=== PATIENT | female | born 1945 | race Caucasian/White ===

== ENCOUNTER 2017-08-12 10:32 | Inpatient (IN) | payer MEDICARE ==
--- NOTE | 2017-08-09 15:49 | Diagnostic Imaging Report ---
PROCEDURE: X-RAY CHEST, TWO VIEWS COMPARISON: Patients [facility], DX, CHEST XRAY LINE PLACEMENT, 03/16/2012, 16:33. INDICATIONS: PREOPERATIVE CHEST XRAY FOR MESINTERIC MASS FINDINGS: LUNGS: Mild hyperinflation. No mass or infiltrate. Pulmonary veins are mildly prominent but stable. PLEURA: No effusions or pneumothorax. HEART \T\ MEDIASTINUM: MediPort catheter terminated in the SVC. The heart is top normal in size. Aortic arch is ectatic with scattered mural calcifications. BONES \T\ SOFT TISSUES: Diffuse demineralization. No focal osseous lesions. CONCLUSION: Mild pulmonary hyperinflation suggestive of small airways disease. No acute cardiopulmonary process. Dictated by: Brian Mora M.D. on 08/09/2017 at 15:49 Electronically approved by: Brian Mora M.D. on 08/09/2017 at 15:49
[2017-08-11 15:39] LABS: BASOPHILS % 0.4 % (0.0-1.0); EOSINOPHILS # (AUTO) 0.1 (0.0-0.4); EOSINOPHILS % 2.9 % (0.0-6.0); HEMATOCRIT 41.6 % (34.2-44.1); HEMOGLOBIN 13.5 g/dL (12.0-16.0); LYMPHOCYTES # (AUTO) 0.8 (1.0-3.2); LYMPHOCYTES % 16.5 % (18.0-39.1); MEAN CORPUSCULAR HEMOGLOBIN 30.5 pg (28-32); MEAN CORPUSCULAR HGB CONC 32.5 g/dL (31-35); MEAN CORPUSCULAR VOLUME 94.1 fL (81-99); MONOCYTES # (AUTO) 0.5 (0.2-0.8); MONOCYTES % 9.4 % (4.4-11.3); NEUTROPHILS # (AUTO) 3.4 (2.1-6.9); NEUTROPHILS % 70.6 % (38.7-80.0); RED BLOOD COUNT 4.42 x10e6/uL (3.6-5.1); RED CELL DISTRIBUTION WIDTH 14.2 % (11.7-14.4)
[2017-08-11 15:40] LABS: PLATELET COUNT 94 x10e3/uL (140-360)
[2017-08-11 16:00] LABS: ALBUMIN 3.5 g/dL (3.5-5.0); ANION GAP 14.1 mmol/L (8-16); CALCIUM 9.5 mg/dL (8.4-10.2); CREATININE, SERUM 0.99 mg/dL (0.57-1.11); POTASSIUM 4.1 mmol/L (3.5-5.1)
[~2017-08-12] VITALS: Ht 154.9 cm; Wt 130.6 kg
[2017-08-12] VITALS (50 sets, daily range): BP systolic 70–137; BP diastolic 32–100
[~2017-08-12 10:32] MED LIST: ALLOPURINOL100 MG PO; ATENOLOL50 MG PO; CALCIUM + VITA1 EACH PO; CALTRATE 600 W1 EACH PO; CRANBERRY300 MG PO; DOCUSATE SODIU100 MG PO; GLIMEPIRIDE2 MG PO; LEVOFLOXACIN 250MG/D5W 50ML 50 ML ONE; LEVOFLOXACIN 500MG/D5W 100ML 100 ML IV ONE; LIDOCAINE HCL 1% 2 ML AMP ONE; METRONIDAZOLE 500MG/NS 100ML 100 ML IV ONE; NORCO 10MG-325MG1 EA PO; NORCO 5-325 TA1 EACH PO; PRAVASTATIN SOD40 MG PO; PROTONIX40 M2; SIMETHICONE80 MG PO; Z.0.ALLOPURINOL300 M PO; Z.0.GLIPIZIDE5 MG PO; Z.0.LISINOPRIL20 MG PO; Z.0.PANTOPRAZOLE SO4 PO; Z.1.HYDROCHLOROTH12. PO
--- OUTSIDE RECORDS SUMMARY | 2017-08-12 10:35 | XMS REPORT ---
Author Author [facility] Address Unknown Phone Unavailable Care Team Providers Care Tax Processor Name Role Phone CORIE HERRING Unavailable Unavailable Problems This patient has no known problems. Allergies, Adverse Reactions, Alerts This patient has no known allergies or adverse reactions. Medications This patient has no known medications. Results Test Description Test Time Test Comments Text Results Atomic Results Result Comments CHEST 2 VIEWS [facility] [address] [place] [address] Patient Name: SANDRA JOAQUIN MR #: [id number] : 1945 Age/Sex: 72/F Req #: [id number] Adm Physician: Ordered by: CORIE HERRING MD Report #: [id number] Location: OR Room/Bed: Procedure: [id number] DX/ CHEST 2 VIEWS Exam Date: Exam Time: REPORT STATUS: Signed PROCEDURE: X-RAY CHEST, TWO VIEWS COMPARISON: [facility], DX, CHEST XRAY LINE PLACEMENT, 03/16/2012, 16:33. INDICATIONS: PREOPERATIVE CHEST XRAY FOR MESINTERIC MASS FINDINGS: LUNGS: Mild hyperinflation. No mass or infiltrate. Pulmonary veins are mildly prominent but stable. PLEURA: No effusions or pneumothorax. HEART T MEDIASTINUM: MediPort catheter terminated in the SVC. The heart is top normal in size. Aortic arch is ectatic with scattered mural calcifications. BONES T SOFT TISSUES: Diffuse demineralization. No focal osseous lesions. CONCLUSION: Mild pulmonary hyperinflation suggestive of small airways disease. No acute cardiopulmonary process. Dictated by: Chinedu Mora M.D. on 08/09/2017 at 15:49 Electronically approved by: Chinedu Mora M.D. on 08/09/2017 at 15:49 Dictated By: CHINEDU MORA MD [id number] Transcribed By: NENO on 08/09/17 1549 COPY TO: CORIE HERRING MD
[2017-08-12] MEDS ORDERED: HETASTARCH ONE (11:42)
[2017-08-12] MEDS ORDERED: NACL ONE (11:42)
[2017-08-12] MEDS ORDERED: CALCIUM CHLORIDE 10% SYRINGE 20 ML IV ONE (13:05)
[2017-08-12] MEDS ORDERED: LEVOFLOXACIN 500MG/D5W 100ML 100 ML IV SCH (13:45)
[2017-08-12] MEDS: SODIUM CHLORIDE 0.9% 250ML IRRIG IR SCH ×3 (13:45→21:19)
[2017-08-12] MEDS ORDERED: HYDROMORPHONE 2MG/ML INJ IV PRN ×2 (13:45→15:30)
[2017-08-12] MEDS ORDERED: DEXTROSE 50% SYRINGE 50 ML IV PRN (14:15)
[2017-08-12 14:29] LABS: BASOPHILS % 0.1 % (0.0-1.0); EOSINOPHILS % 0.2 % (0.0-6.0); HEMATOCRIT 30.4 % (34.2-44.1); LYMPHOCYTES # (AUTO) 0.6 (1.0-3.2); LYMPHOCYTES % 3.8 % (18.0-39.1); MEAN CORPUSCULAR HEMOGLOBIN 28.7 pg (28-32); MEAN CORPUSCULAR HGB CONC 32.9 g/dL (31-35); MEAN CORPUSCULAR VOLUME 87.4 fL (81-99); MONOCYTES % 6.3 % (4.4-11.3); NEUTROPHILS # (AUTO) 14.5 (2.1-6.9); NEUTROPHILS % 88.2 % (38.7-80.0); PLATELET COUNT 84 x10e3/uL (140-360); RED BLOOD COUNT 3.48 x10e6/uL (3.6-5.1); RED CELL DISTRIBUTION WIDTH 16.5 % (11.7-14.4)
[2017-08-12 14:42] LABS: ANION GAP 14.1 mmol/L (8-16); BLOOD UREA NITROGEN 9 mg/dL (7-26); BUN/CREATININE RATIO 11 (6-25); CALCIUM 7.4 mg/dL (8.4-10.2); CARBON DIOXIDE 18 mmol/L (22-29); CHLORIDE 110 mmol/L (98-107); CREATININE, SERUM 0.83 mg/dL (0.57-1.11); EST GLOMERULAR FILTRATION RATE > 60 ML/MIN (60-); GLUCOSE 211 mg/dL (74-118); POTASSIUM 5.1 mmol/L (3.5-5.1); SODIUM 137 mmol/L (136-145)
[2017-08-12] MEDS ORDERED: HYDROMORPHONE 20MG/ NS 100ML IV PRN (14:45)
[2017-08-12] MEDS ORDERED: PROPOFOL IV EMULSION 10MG/ML 100 ML IV PRN (14:45)
[2017-08-12] MEDS: SODIUM CHLORIDE 0.9% 1000ML 1,000 ML IV SCH ×2 (14:50→20:16)
--- NOTE | 2017-08-12 14:53 | Diagnostic Imaging Report ---
PROCEDURE: A single AP view of the chest. COMPARISON: Chest 2 views 08/09/2017. INDICATIONS: CENTRAL LINE PLACED FINDINGS: Lines/tubes: Endotracheal catheter is present with the tip projecting over the expected region of the trachea, positioned 2 cm from the kai. Enteric feeding catheter is present with the tip projecting over the expected region of the gastric body. Right subclavian tunneled chest port is present with the tip projecting over the expected region of the superior vena cava. Right internal jugular temporary central venous catheter with tip projecting over the expected region of the superior vena cava. Lungs: No parenchymal mass. Bibasilar atelectasis. No focal consolidation. Pleura: There is no pleural effusion or pneumothorax. Heart and mediastinum: The heart and the mediastinum are unremarkable. Bones: No acute bony abnormality. IMPRESSION: No acute radiographic abnormality. Dictated by: Ferdinand Willis M.D. on 08/12/2017 at 14:53 Electronically approved by: Ferdinand Willis M.D. on 08/12/2017 at 14:53
[2017-08-12 14:55] LABS: ABG HCO3 18 mmol/L (23-28); ABG PCO2 39 mmHg (41-51); ABG PH 7.27 (7.31-7.41); ABG PO2 169 mmHg (80-105)
[2017-08-12] MEDS ORDERED: FENTANYL CITRATE/PF 100MCG/2 ML INJ ONE (15:04)
[2017-08-12] MEDS ORDERED: HYDROMORPHONE 100 ML IV PRN (15:30)
[2017-08-12] MEDS ORDERED: SODIUM CHLORIDE 0.9% 250ML 250 ML ONE ×2 (15:40→18:28)
--- NOTE | 2017-08-12 15:50 | Operative Report ---
DATE OF PROCEDURE: August 12, 2017 PREOPERATIVE DIAGNOSIS: Retroperitoneal tumor, metastatic carcinoma of colon. POSTOPERATIVE DIAGNOSIS: Retroperitoneal tumor, metastatic carcinoma of colon with omental mass. OPERATION PERFORMED 1. Exploratory laparotomy. 2. Resection of retroperitoneal tumor. 3. Repair of superior mesenteric vein. 4. Excision of omental mass. X RAY NURSE: None. ANESTHESIA: General. INDICATIONS AND FINDINGS: The patient is a 72-year-old female who had previous colon resection for carcinoma of the colon. She developed a recurrent mass in the base of the mesentery extending into the retroperitoneum. Biopsy revealed metastatic adenocarcinoma of the colon. At surgery, there was a large mass that was about 6 cm in diameter at the base of the mesentery extending into the retroperitoneum adjacent to the inferior aspect of the pancreas as well as adherent to the superior mesenteric vein and superior mesenteric artery. There was also a mass in the omentum as the abdomen was entered, and frozen section of this revealed only fibrosis, no tumor. The bowel all appeared viable at the end of the procedure. TECHNIQUE: After adequate general endotracheal anesthesia, with the patient in the supine position, the abdomen was prepped and draped in a sterile fashion with Jose solution. Through a midline incision, the peritoneal cavity was entered. There were adhesions involving the omentum to the abdominal wall. There was a mass in the omentum as the adhesions were freed. This portion of omentum was resected by dividing with the LigaSure device and submitted for frozen section, which revealed only fibrosis. There was a hard mass palpable at the root of the mesentery extending into the retroperitoneum. The omentum was dissected way from the transverse colon and from the area of previous colon resection. The mass was seen within the lesser sac in the retroperitoneum. Peritoneum over the mass was incised. The mass superiorly was abutting the inferior aspect of the pancreas, and the dissection was carried along the inferior aspect of the pancreas, freeing the mass in this area. As the mass was dissected free, it was found the mass was adherent to the superior mesenteric vein. The mass was dissected off the vein, but there was some bleeding from the vein which was initially controlled with vascular clamps. The mass was dissected completely free from the superior mesenteric vein. There were several larger veins adherent to the mass from the mesentery, and these were divided between Hemoclips and also LigaSure device. To the left, the mass also found to be abutting the superior mesenteric artery. The mass was dissected off the superior mesenteric artery. Care was taken to preserve the artery. The mass was completely freed from the superior mesenteric artery. There were other large veins in the area which started bleeding. These were initially clamped as the mass was dissected free. The mass was dissected off the superior mesenteric vein and the remaining portion of the mesentery using a LigaSure device. Vessels as they were encountered were either divided between Hemoclips or ligated with the LigaSure device, and some of them were suture ligated with 2-0 silk and #0 silk. Once the mass was completely free, it was removed. Superior mesenteric vein, which had been clamped, was then repaired. This was done using 3-0 Prolene. The mesenteric veins were suture ligated with 2-0 silk and 3-0 silk and hemostasis achieved. Patient had a large volume blood loss before the bleeding was controlled. The bowel was then examined. The bowel all appeared pink and viable with no areas of ischemia. The retroperitoneum was irrigated with saline and inspected for hemostasis. Small amount of oozing of the retroperitoneum was controlled with Surgicel gauze. Pressure held and hemostasis achieved. It was inspected for hemostasis once again, which was seen to be adequate. It is not clear if any tumor was left behind as the tumor was dissected free from the superior mesenteric vein and artery, and no adequate margin could be obtained particularly from the superior mesenteric artery as it was abutting the artery. No gross tumor was left behind, however. The wound was inspected for hemostasis once again, which was seen to be adequate. The wound was then closed. The midline fascia was closed with a running suture of #1 PDS. Subcutaneous tissue was irrigated with saline. Skin was closed with pawan. Sterile dressing was applied. Patient tolerated the procedure well. Estimated blood loss was 6,000 mL. There were no complications. All counts were correct. Patient was taken to the ICU in stable condition. Job#: [id number] MH cc:MD JEFFREY WILLIAMSON M.D.
[2017-08-12] MEDS: INSULIN LISPRO 100 UNIT/1 ML 3ML VIAL SQ SCH ×2 (16:30→21:49)
[2017-08-12] MEDS: LORAZEPAM INJ 2 MG/ML VIAL IV PRN (16:57)
[2017-08-12] MEDS: NOREPINEPHRINE INJ 4MG/4ML 8 MG in DEXTROSE 5% 250ML 250 ML IV PRN (16:59)
[2017-08-12] MEDS ORDERED: FAMOTIDINE 20 MG/2 ML VIAL IV SCH (17:00)
[2017-08-12] MEDS ORDERED: PHENYLEPHRINE HCL 1% 10 MG/ML VIAL ONE (18:20)
[2017-08-12] MEDS ORDERED: DEXAMETHASONE SOD PHOS INJ 4 MG/ML VIAL ONE (18:20)
[2017-08-12] MEDS ORDERED: DESFLURANE 240 ML BTL INH ONE (18:20)
[2017-08-12] MEDS ORDERED: PROPOFOL IV EMULSION 10 MG/ML 20 ML VIAL ONE (18:20)
[2017-08-12] MEDS ORDERED: ROCURONIUM BROMIDE 10 MG/ML 5ML VIAL ONE (18:20)
[2017-08-12 22:43] LABS: HEMATOCRIT 38.4 % (34.2-44.1); HEMOGLOBIN 13.2 g/dL (12.0-16.0)
[2017-08-12 22:51] LABS: INR 1.61
[2017-08-12 22:52] LABS: PARTIAL THROMBOPLASTIN TIME 32.8 seconds (23.8-35.5)
[2017-08-13] VITALS (108 sets, daily range): BP systolic 59–130; BP diastolic 28–97
--- NOTE | 2017-08-13 00:14 | Consultation ---
DATE OF CONSULTATION: PLEASE VERIFY PATIENT IDENTITY. ADT MATCH NOT AVAILABLE. PULMONARY CRITICAL CARE CONSULTATION I was called by Dr. Oliva to evaluate the patient postoperatively. Patient underwent surgery for retroperitoneal tumor, omental mass, and metastatic carcinoma of the colon. Post resection, she lost large amount of blood. Now, she is intubated and sedated and she is in circulatory shock. She has received multiple transfusions. HPI: Ms. Gonzales is a 72-year-old female who underwent resection of the retroperitoneal tumor. Patient saw Dr. Oliva and was admitted for this procedure. She is currently on a mechanical ventilator, unable to give me any detailed history. Source of history is the patient's chart. She is arousable, following commands and goes back to sleep. REVIEW OF SYSTEMS: Unable to elicit any as patient is on the ventilator and sedation. PAST MEDICAL HISTORY: Hypertension and diabetes. PAST SURGICAL HISTORY: Tubal ligation, throat surgery, laparoscopic cholecystectomy in 2008, and lap-assisted right colon resection 2016. FAMILY HISTORY: Mother , heart problem in father. SOCIAL HISTORY: Former smoker, quit in 2004. Does not drink. ALLERGIES: PENICILLIN, KEFLEX, , GENTAMICIN. PHYSICAL EXAMINATION VITALS: Temperature 97.4, pulse 113, blood pressure is 81/37, respiratory rate of 18, O2 sat 100%. She is on FiO2 of 50%. Vent settings reviewed. SKIN: Warm and dry. HEENT: Head atraumatic. CHEST: Clear to auscultation bilaterally. HEART: S1 and S2 audible. ABDOMEN: She has an incision which is dressed. LABS: White count of 16,000, hemoglobin 10.0, and platelets 84,000. Chemistry is within normal limits. Creatinines is 0.83. Patient is afebrile. ASSESSMENT/PLAN 1. Circulatory shock, hemorrhagic postoperatively. 2. Removal of large retroperitoneal tumor. 3. History of hypertension and diabetes. PLAN: We will check hemoglobin q.8 hourly and transfuse as needed. She has received 7 units of blood so far. She is on IV fluids. IV hydration has been continued. Patient has received multiple boluses, Levophed for circulatory shock. Will hold off on antibiotic for now. Check labs in a.m. Ventilator setting reviewed. We will keep the patient on ventilator for now until the shock is resolved. Chest x-ray film reviewed, no acute infiltrate and no congestion. Endotracheal tube position is appropriate. d/w family at bedside also d/w Dr Oliva CC TIME 45 MIN Job#: [id number] [facility]
[2017-08-13] MEDS ORDERED: SODIUM CHLORIDE 0.9% 500ML 500 ML IV ONE ×2 (01:45→05:45)
[2017-08-13] MEDS: SODIUM CHLORIDE 0.9% 250ML IRRIG IR SCH ×5 (01:45→18:34)
[2017-08-13] MEDS: SODIUM CHLORIDE 0.9% 1000ML 1,000 ML IV SCH (03:18)
[2017-08-13 06:04] LABS: HEMATOCRIT 37.4 % (34.2-44.1); HEMOGLOBIN 12.6 g/dL (12.0-16.0); MEAN CORPUSCULAR HEMOGLOBIN 29.3 pg (28-32); MEAN CORPUSCULAR HGB CONC 33.7 g/dL (31-35); PLATELET COUNT 146 x10e3/uL (140-360); RED CELL DISTRIBUTION WIDTH 17.4 % (11.7-14.4)
[2017-08-13 06:32] LABS: ALBUMIN 1.8 g/dL (3.5-5.0); ALBUMIN/GLOBULIN RATIO 1.3 (0.8-2.0); ANION GAP 11.6 mmol/L (8-16); POTASSIUM 5.6 mmol/L (3.5-5.1)
[2017-08-13 06:37] LABS: CALCIUM 6.8 mg/dL (8.4-10.2); CREATININE, SERUM 1.64 mg/dL (0.57-1.11)
[2017-08-13] MEDS ORDERED: CALCIUM GLUCONATE 10% INJ 4.65 MEQ in SODIUM CHLORIDE 0.9% 50ML 100 ML IV ONE (07:30)
[2017-08-13] MEDS: INSULIN LISPRO 100 UNIT/1 ML 3ML VIAL SQ SCH ×3 (07:30→18:37)
[2017-08-13 08:30] LABS: BAND NEUTROPHILS % (MANUAL) 10 %; LYMPHOCYTES % (MANUAL) 4 % (19-48); MONOCYTES % (MANUAL) 6 % (3.4-9.0); NEUTROPHILS % (MANUAL) 80 % (40-74)
[2017-08-13 08:31] LABS: ANISOCYTOSIS SLIGHT; PLATELET ESTIMATE SLIGHTLY DECREASED; PLATELET MORPHOLOGY COMMENT NORMAL; RBC MORPHOLOGY COMMENT NORMAL
[2017-08-13] MEDS: LEVOFLOXACIN 500MG/D5W 100ML 100 ML IV SCH (09:30)
[2017-08-13] MEDS: PANTOPRAZOLE 40 MG 10ML VIAL IV SCH (09:35)
[2017-08-13] MEDS ORDERED: HETASTARCH 6%/NACL INJ 500 ML ONE (10:19)
[2017-08-13] MEDS ORDERED: HETASTARCH 6%/NACL INJ 500 ML IV ONE (10:30)
[2017-08-13] MEDS: NOREPINEPHRINE INJ 4MG/4ML 8 MG in DEXTROSE 5% 250ML 250 ML IV PRN (11:20)
[2017-08-13] MEDS: VASOPRESSIN 100 UNIT in DEXTROSE 5% 100ML 95 ML IV SCH (12:00)
[2017-08-13 12:19] LABS: HEMATOCRIT 32.3 % (34.2-44.1); HEMOGLOBIN 11.1 g/dL (12.0-16.0)
[2017-08-13 12:37] LABS: ANION GAP 8.4 mmol/L (8-16); CREATININE, SERUM 2.15 mg/dL (0.57-1.11); POTASSIUM 5.4 mmol/L (3.5-5.1)
[2017-08-13 12:40] LABS: CALCIUM 6.9 mg/dL (8.4-10.2)
[2017-08-13] MEDS ORDERED: FUROSEMIDE INJ 10 MG/ML 4 ML VIAL ONE (13:14)
[2017-08-13] MEDS ORDERED: FUROSEMIDE INJ 10 MG/ML 4 ML VIAL IV ONE (13:20)
[2017-08-13] MEDS ORDERED: DEXTROSE 50% SYRINGE 50 ML IV STA (13:40)
[2017-08-13] MEDS ORDERED: SODIUM CHLORIDE 0.45% 1,000 ML IV ONE (13:45)
[2017-08-13] MEDS ORDERED: INSULIN REGULAR, HUMAN 100 UNIT/1 ML 3ML VIAL IV ONE (13:45)
[2017-08-13] MEDS ORDERED: LIDOCAINE HCL 1% LOCAL INJ 20 ML VIAL ONE (15:00)
--- NOTE | 2017-08-13 15:26 | Consultation ---
DATE OF CONSULTATION: August 13, 2017 CARDIOLOGY CONSULTATION REASON FOR CONSULTATION: Low blood pressure. REQUESTING PHYSICIAN: Dr. Oliva HISTORY OF PRESENT ILLNESS: This is a pleasant, 72-year-old, morbidly obese female that is status post retroperitoneal tumor removal. Postoperatively, she went into circulatory shock. She received multiple blood transfusions. Still intubated and transferred to ICU for higher level of care. Her blood pressure was still low, and cardiology was consulted. She is already on 2 pressors, Levophed and dopamine drip. She is wide awake on the vent on Dilaudid drip to help for sedation and pain. PAST MEDICAL HISTORY: Colon cancer, diabetes, hypertension, and CKD. PAST SURGICAL HISTORY: Tubal ligation, throat surgery, cholecystectomy, colon resection, status post large retroperitoneal tumor removal. FAMILY HISTORY: Noncontributory. SOCIAL HISTORY: She is an ex-smoker. MEDICATIONS: See med list. ALLERGIES: SHE HAS MULTIPLE ALLERGIES, SEE CHART. REVIEW OF SYSTEMS: Unable to obtain. She is intubated and sedated with Dilaudid. PHYSICAL EXAMINATION VITAL SIGNS: Temperature 97.6, heart rate 107, blood pressure now 120/50, respirations 16, oxygen saturation 98% on mechanical ventilation. GENERAL: She is morbidly obese, awake and alert but not following any commands. HEENT: Mucous membranes are moist. NECK: Supple. LUNGS: Bilaterally with decreased breath sounds. CARDIOVASCULAR: S1 and S2 present. ABDOMEN: Soft. NEUROLOGIC: She is sedated. Not able to move all extremities or answer any questions. EXTREMITIES: Bilateral lower extremities with no edema. LABS: Sodium 136, potassium 5.4, chloride 114, CO2 19, BUN 19, creatinine 2.15, glucose 148. White blood cells 32.4, hemoglobin 11.1, hematocrit 32.3, platelets 146. PT 18.0, PTT 32.8, INR 1.61. IMPRESSION 1. Hemorrhagic shock. 2. Hypotension. 3. Diabetes. 4. Status post retroperitoneal tumor removal. 5. Respiratory failure. 6. Renal insufficiency. ASSESSMENT AND PLAN: We will go ahead and get an echocardiogram to assess the LV and the valve function. We will continue vasopressors and wean as tolerated. Sedation per pulmonology. She is pending dialysis catheter placement for possible dialysis. Further cardiac workup pending clinical course. Thank you for this consultation. Dictated by Pearl Segal NP Job#: [id number] MH
--- NOTE | 2017-08-13 15:29 | Consultation ---
DATE OF CONSULTATION: August 13, 2017 NEPHROLOGY CONSULTATION REQUESTING PHYSICIAN: Noble. REASON FOR CONSULTATION: Acute kidney injury. Thank you for allowing us to participate in Ms. Gonzales's care. HISTORY OF PRESENT ILLNESS: This is 72-year-old female who underwent resection of retroperitoneal tumor along with repair of the mesentery vein. She has been in shock. Urine output has essentially become zero. She is somewhat tachycardic on both dopamine and Levophed 20 mcg per minute. On a mechanical ventilator at this time. She did lose some blood, got transfusion. PAST HISTORY 1. Colon cancer, metastatic adenocarcinoma. 1. History of creatinine on admission of 0.8. 2. Hypertension. 3. Type 2 diabetes. 4. Prior kidney injury per family. 5. Colon resection 2016 on the right side. FAMILY HISTORY: Unable to obtain. SOCIAL HISTORY: Per records, prior history of smoking. ALLERGIES ON RECORDS: PENICILLIN, CEPHALEXIN, GENTAMICIN. MEDICATIONS: Please see list. REVIEW OF SYSTEMS: Unable to obtain as she is intubated. PHYSICAL EXAMINATION GENERAL: Lying in ICU bed. She is intubated. VITAL SIGNS: Pulse is 89, blood pressure is 96/46, O2 sat is 98% on ventilator. HEENT: Orally intubated. Occasionally opens eyes. NECK: Unable to see JVD. She has a right internal jugular central line. CHEST: Occasional upper airway sounds. CARDIAC: Normal heart tones. Earlier tachycardia seems improved. EXTREMITIES: Trace edema. ABDOMEN: With sluggish bowel sounds. NEUROLOGIC: Mostly sedate. GENITOURINARY: Paul catheter in place. CHEST X-RAY: Clear earlier. LABS: pH is decreased at 7.27, pCO2 of 39, pO2 of 169. Hemoglobin is going from 13.5 to 10, now back up to 11.1. INR is 1.61. Serum potassium is 5.4, serum CO2 19. Calcium low at 6.9. Albumin is only 1.8. Sodium is 136. Creatinine is 2.1 from 0.83. BUN of 19. ASSESSMENT 1. Acute tubular necrosis. 2. Oliguria/anuria. 3. Metabolic acidosis. 4. Hyperkalemia. PLAN: At this point, insulin 10 units IV x1, 2 amps of dextrose, 50% solution x1. Repeat potassium check. Change IV fluids to half NS with 75 mEq per liter of sodium bicarbonate, run at 150 an hour. Get renal ultrasound. Get urine studies if she does make any urine, including urine eosinophils. Agree with serial hemoglobin checks as there still may be some blood loss to be considered. Additionally, she is at high risk for needing dialytic support. Will request Interventional Radiology place a dialysis catheter for us with the help of ultrasound. Will follow along. Complex decision-making discussed with family. Prognosis remains guarded given the multiple system failures. Will follow along. Sincerely, Job#: [id number] EV
--- NOTE | 2017-08-13 15:52 | Diagnostic Imaging Report ---
PROCEDURE:US RETROPERITONEAL ( KIDNEY ). COMPARISON:None. INDICATIONS:LOW URINE OUTPUT TECHNIQUE: Gonzalez-scale and color sonographic images of the bilateral kidneys and bladder where obtained in transverse and longitudinal planes. FINDINGS: RIGHT KIDNEY: 9.8 x 4 x 4 cm, cortex 1.4 cm Cysts: None Solid masses: None Stones: None Hydronephrosis: None Echogenicity: Increased LEFT KIDNEY: 8.4 x 4.5 cm, cortex 1.8 cm. Transverse measurement was unable to be completed as patient declined to continue with the ultrasound exam. A single longitudinal image of the left kidney was only able to be obtained. Cysts: Not evaluated Solid masses: Not evaluated Stones: Not evaluated Hydronephrosis: Not evaluated Echogenicity: Not evaluated Bladder: Collapsed with Paul in place. Incidental note of ascites in the right upper quadrant and limited view of the left upper quadrant. CONCLUSION: 1. Limited evaluation of the left kidney. Patient declined to complete the ultrasound exam secondary to pain. 2. Mildly increased right renal echogenicity may reflect medical renal disease. 3. Ascites. Dictated by: Nish Bardales M.D. on 08/13/2017 at 15:52 Electronically approved by: Nish Bardales M.D. on 08/13/2017 at 15:52
--- NOTE | 2017-08-13 16:09 | Diagnostic Imaging Report ---
PROCEDURE: A single AP view of the chest. COMPARISON: Chest radiograph 08/12/2017 INDICATIONS: CENTRAL LINE PLACEMENT FINDINGS: Lines/tubes: * Right IJ catheter tip projects over the upper SVC. * Right chest wall port catheter tip projects over the upper SVC. * ET tube tip projects approximately 7.1 cm above the kai near the thoracic inlet. Consider advancing. * NG/OG tube tip and side hole project over the gastric body. Lungs: The lungs are not well inflated. There is no evidence of pneumonia or pulmonary edema. Pleura: Possible trace bilateral pleural effusions. There is no pneumothorax. Heart and mediastinum: The heart and the mediastinum are unremarkable. Bones: Unchanged Upper abdomen: Cholecystectomy clips. IMPRESSION: Lines and tubes as above. Possible trace bilateral pleural effusions. Otherwise, no acute cardiopulmonary disease. Dictated by: Nish Bardales M.D. on 08/13/2017 at 16:08 Electronically approved by: Nish Bardales M.D. on 08/13/2017 at 16:08
[2017-08-13] MEDS ORDERED: PROPOFOL IV EMULSION 10 MG/ML 20 ML VIAL IV ONE (16:15)
[2017-08-13] MEDS ORDERED: SODIUM CHLORIDE 0.45% 1,000 ML IV SCH (16:15)
[2017-08-13] MEDS: SODIUM BICARBONATE 8.4% 75 ML in SODIUM CHLORIDE 0.45% 1,000 ML IV SCH (16:29)
[2017-08-13] MEDS: PROPOFOL IV EMULSION 10MG/ML 100 ML IV SCH (16:30)
[2017-08-13 17:38] LABS: BILIRUBIN,URINE 1+ (NEGATIVE); COLOR,URINE YELLOW (YELLOW); KETONES,URINE NEGATIVE (NEGATIVE); LEUKOCYTE ESTERASE ,URINE TRACE (NEGATIVE); NITRITE,URINE NEGATIVE (NEGATIVE); URINE UROBILINOGEN 1 mg/dL (0.2 - 1)
[2017-08-13 17:40] LABS: CLARITY,URINE SL CLOUDY (CLEAR); PROTEIN,URINE DIPSTICK 1+ (NEGATIVE)
[2017-08-13 18:00] LABS: BACTERIA,URINE MANY /HPF; EPITHELIAL CELLS,URINE FEW /LPF; HYALINE CASTS 0-1 (0-1)
[2017-08-13 18:43] LABS: EOSINOPHIL SMEAR,URINE NONE SEEN (NONE SEEN)
[2017-08-13 19:38] LABS: HEMATOCRIT 30.8 % (34.2-44.1); HEMOGLOBIN 10.4 g/dL (12.0-16.0)
[2017-08-13 20:05] LABS: ANION GAP 9.9 mmol/L (8-16); CREATININE, SERUM 2.65 mg/dL (0.57-1.11); POTASSIUM 4.9 mmol/L (3.5-5.1)
[2017-08-13 20:10] LABS: CALCIUM 6.9 mg/dL (8.4-10.2)
[2017-08-13] MEDS: LORAZEPAM INJ 2 MG/ML VIAL IV PRN (23:55)
[2017-08-14] VITALS (131 sets, daily range): BP systolic 64–138; BP diastolic 31–69
[2017-08-14] MEDS: SODIUM CHLORIDE 0.9% 250ML IRRIG IR SCH ×7 (00:03→22:30)
[2017-08-14] MEDS: INSULIN LISPRO 100 UNIT/1 ML 3ML VIAL SQ SCH ×4 (00:15→18:00)
[2017-08-14] MEDS: SODIUM BICARBONATE 8.4% 75 ML in SODIUM CHLORIDE 0.45% 1,000 ML IV SCH ×4 (00:16→21:17)
[2017-08-14] MEDS: NOREPINEPHRINE INJ 4MG/4ML 8 MG in DEXTROSE 5% 250ML 250 ML IV PRN ×2 (01:32→20:58)
[2017-08-14] MEDS: LORAZEPAM INJ 2 MG/ML VIAL IV PRN ×3 (04:25→21:04)
[2017-08-14 04:47] LABS: HEMATOCRIT 30.5 % (34.2-44.1); HEMOGLOBIN 10.3 g/dL (12.0-16.0); MEAN CORPUSCULAR HEMOGLOBIN 29.8 pg (28-32); MEAN CORPUSCULAR HGB CONC 33.8 g/dL (31-35); MEAN CORPUSCULAR VOLUME 88.2 fL (81-99); PLATELET COUNT 88 x10e3/uL (140-360); RED BLOOD COUNT 3.46 x10e6/uL (3.6-5.1); RED CELL DISTRIBUTION WIDTH 17.7 % (11.7-14.4)
[2017-08-14 05:15] LABS: ALBUMIN 1.4 g/dL (3.5-5.0); ALBUMIN/GLOBULIN RATIO 0.9 (0.8-2.0); ANION GAP 11.8 mmol/L (8-16); CREATININE, SERUM 3.06 mg/dL (0.57-1.11); PHOSPHORUS 4.1 MG/DL (2.3-4.7); POTASSIUM 4.8 mmol/L (3.5-5.1)
[2017-08-14] MEDS: LEVOFLOXACIN 500MG/D5W 100ML 100 ML IV SCH ×2 (05:15→07:30)
[2017-08-14 05:16] LABS: MAGNESIUM 0.9 MG/DL (1.3-2.1)
[2017-08-14] MEDS ORDERED: MAGNESIUM SULFATE 2GM/50ML 50 ML IV ONE (05:30)
[2017-08-14 06:21] LABS: BILIRUBIN,URINE 2+ (NEGATIVE); KETONES,URINE TRACE (NEGATIVE); LEUKOCYTE ESTERASE ,URINE 1+ (NEGATIVE); URINE UROBILINOGEN 4 mg/dL (0.2 - 1)
[2017-08-14 06:22] LABS: CLARITY,URINE HAZY (CLEAR); COLOR,URINE YELLOW (YELLOW); NITRITE,URINE POSITIVE (NEGATIVE); PROTEIN,URINE DIPSTICK 1+ (NEGATIVE)
[2017-08-14 06:24] LABS: BACTERIA,URINE MODERATE /HPF; EPITHELIAL CELLS,URINE FEW /LPF; RBC,URINE 0-5 /HPF (0-5)
[2017-08-14 06:25] LABS: WBC,URINE (MAN) 0-5 /HPF (0-5)
[2017-08-14] MEDS: PANTOPRAZOLE 40 MG 10ML VIAL IV SCH (09:00)
[2017-08-14] MEDS ORDERED: SODIUM CHLORIDE 0.9% 1000ML 2,000 ML IV PRN (10:45)
[2017-08-14] MEDS ORDERED: HEPARIN SOD (PORCINE) 1000 UNIT/ML SDV IV PRN (10:45)
[2017-08-14] MEDS: VASOPRESSIN 100 UNIT in DEXTROSE 5% 100ML 95 ML IV SCH (12:00)
[2017-08-14] MEDS ORDERED: VANCOMYCIN 1GM/NS 250 ML 250 ML IV ONE (12:00)
[2017-08-14] MEDS ORDERED: SODIUM CHLORIDE 0.9% 1000ML 2,000 ML ONE (12:26)
[2017-08-14] MEDS: PROPOFOL IV EMULSION 10MG/ML 100 ML IV SCH (16:15)
--- NOTE | 2017-08-14 18:10 | Diagnostic Imaging Report ---
EXAMINATION: CT scan of the chest without contrast. TECHNIQUE: Spiral CT images of the chest were performed from the lung apices to the level of the adrenal glands. No intravenous contrast was administered due to decreased GFR. Coronal and sagittal reformatted images were obtained. COMPARISON: None. CLINICAL HISTORY:Status post surgery for retroperitoneal tumor and carcinoma of colon, status post circulatory shock DISCUSSION: ABSENCE OF INTRAVENOUS CONTRAST DECREASES SENSITIVITY FOR DETECTION OF FOCAL LESIONS AND VASCULAR PATHOLOGY. LINES/TUBES: Endotracheal tube in place with distal tip approximately 4.0 cm above the kai. Enteric tube in place, with distal tip in the stomach fundus. LUNGS AND AIRWAYS: Mild to moderate compressive atelectasis of bilateral lower lobes. Atelectatic changes in the lingula secondary to prominent epicardial fat pad. Upper lungs and right middle lobe are clear, without opacities or consolidation. The major airways are clear, without other bronchial lesions. PLEURA: Small bilateral pleural effusions. No pneumothorax. HEART AND MEDIASTINUM: Bilateral thyroid lobe enlargement. 1.0 cm calcification in the right thyroid lobe (series 5, image 6) and 7 mm peripherally calcified nodule in the inferior tip of the left thyroid lobe (series 5, image 15).. Heart size is normal. No pericardial effusion. Atherosclerotic calcification of the coronary arteries, thoracic aorta and likely mitral annulus. LYMPH NODES: No mediastinal, hilar or axillary adenopathy. ABDOMEN: Please see CT of the abdomen and pelvis performed same day. BONES AND SOFT TISSUES: Generalized osteopenia. No aggressive lytic lesions. IMPRESSION: 1. Small bilateral pleural effusions with mild to moderate compressive atelectasis of bilateral lower lobes. 2. Atelectatic changes in the lingula. 3. Bilateral thyroid lobe enlargement, with bilateral calcified nodules, as described Signed by: Dr. Jos Rivera M.D. on 08/14/2017 6:07 PM
--- NOTE | 2017-08-14 18:16 | Diagnostic Imaging Report ---
EXAMINATION: CT of the abdomen and pelvis without contrast. TECHNIQUE: Spiral CT images of the abdomen and pelvis were performed from the lung bases to the lesser trochanters. No intravenous contrast was given due to decreased GFR. Coronal and sagittal reformatted images were obtained. COMPARISON: None. CLINICAL HISTORY:Status post surgery for retroperitoneal tumor and carcinoma of colon, status post hepatic artery shock, history of mesenteric mass, rule out bleeding DISCUSSION: ABSENCE OF INTRAVENOUS CONTRAST DECREASES SENSITIVITY FOR DETECTION OF FOCAL LESIONS AND VASCULAR PATHOLOGY. ABDOMEN/PELVIS: LOWER THORAX: Please see CT chest performed same date. HEPATOBILIARY: No focal hepatic lesions. No intra or extrahepatic biliary ductal dilation. GALLBLADDER: Cholecystectomy clips. SPLEEN: Mild splenomegaly, measuring 13.2 cm in AP diameter. PANCREAS: No focal masses or ductal dilatation. Moderate pancreatic atrophy. ADRENALS: No adrenal nodules. KIDNEYS/URETERS: No hydronephrosis, stones, or contour abnormalities. PELVIC ORGANS/BLADDER: Bladder is decompressed with Paul catheter in place. A small amount of air is noted in the antidependent portion of the bladder. Uterus is unremarkable. No adnexal masses. PERITONEUM/RETROPERITONEUM: Small amount of simple abdominal/perihepatic and mesenteric ascites. Small amount of simple free fluid in the pelvis. No hyperdense fluid is noted in the abdomen or pelvis to suggest hemoperitoneum. No well-defined fluid collections. LYMPH NODES: No intra-abdominal,retroperitoneal, pelvic or inguinal lymphadenopathy. VESSELS: Atherosclerotic calcification of the abdominal aorta and iliac vessels. GI TRACT: No bowel dilation or evidence of obstruction. Postoperative changes in the transverse colon, likely post ascending colectomy. BONES AND SOFT TISSUES: No aggressive lytic lesions. Generalized osteopenia. Moderate soft tissue edema. Bilateral calcified injection granulomas in the gluteal regions. IMPRESSION: 1. Exam limited by the lack of intravenous contrast. 2. No hyperdense fluid is noted in the abdomen or pelvis to suggest hemoperitoneum. No well-defined fluid collections, within the limitations of the exam. 3. Small amount of simple abdominal/perihepatic/mesenteric ascites and simple free fluid in the pelvis. 4. Mild splenomegaly. 5. Postoperative changes likely from ascending colectomy. No bowel dilation or evidence of obstruction. Signed by: Dr. Jos Rivera M.D. on 08/14/2017 6:13 PM
[2017-08-15] VITALS (109 sets, daily range): BP systolic 72–164; BP diastolic 38–69
[2017-08-15] MEDS: INSULIN LISPRO 100 UNIT/1 ML 3ML VIAL SQ SCH ×5 (00:38→19:08)
[2017-08-15] MEDS: SODIUM CHLORIDE 0.9% 250ML IRRIG IR SCH ×7 (03:06→22:35)
[2017-08-15] MEDS: NOREPINEPHRINE INJ 4MG/4ML 8 MG in DEXTROSE 5% 250ML 250 ML IV PRN ×2 (03:06→14:00)
[2017-08-15] MEDS: SODIUM BICARBONATE 8.4% 75 ML in SODIUM CHLORIDE 0.45% 1,000 ML IV SCH ×3 (04:05→18:25)
[2017-08-15] MEDS: LEVOFLOXACIN 500MG/D5W 100ML 100 ML IV SCH ×3 (05:15→10:40)
[2017-08-15 05:21] LABS: BASOPHILS % 0.1 % (0.0-1.0); HEMATOCRIT 28.7 % (34.2-44.1); HEMOGLOBIN 9.7 g/dL (12.0-16.0); LYMPHOCYTES # (AUTO) 1.1 (1.0-3.2); LYMPHOCYTES % 5.4 % (18.0-39.1); MEAN CORPUSCULAR HEMOGLOBIN 29.7 pg (28-32); MEAN CORPUSCULAR HGB CONC 33.8 g/dL (31-35); MEAN CORPUSCULAR VOLUME 87.8 fL (81-99); MONOCYTES # (AUTO) 1.4 (0.2-0.8); MONOCYTES % 6.7 % (4.4-11.3); NEUTROPHILS % 86.4 % (38.7-80.0); PLATELET COUNT 70 x10e3/uL (140-360); RED BLOOD COUNT 3.27 x10e6/uL (3.6-5.1); RED CELL DISTRIBUTION WIDTH 17.7 % (11.7-14.4)
[2017-08-15 05:45] LABS: ANION GAP 12.2 mmol/L (8-16); CALCIUM 7.5 mg/dL (8.4-10.2); CREATININE, SERUM 3.19 mg/dL (0.57-1.11); MAGNESIUM 1.2 MG/DL (1.3-2.1); PHOSPHORUS 3.7 MG/DL (2.3-4.7); POTASSIUM 4.2 mmol/L (3.5-5.1)
[2017-08-15] MEDS ORDERED: MAGNESIUM SULF 1GRAM/DEXTROSE 100 ML IV ONE ×2 (06:45→15:30)
[2017-08-15 10:15] LABS: ABG HCO3 26 mmol/L (23-28); ABG PCO2 37 mmHg (41-51); ABG PH 7.46 (7.31-7.41); ABG PO2 80 mmHg (80-105)
[2017-08-15] MEDS: PANTOPRAZOLE 40 MG 10ML VIAL IV SCH (10:40)
[2017-08-15] MEDS: VASOPRESSIN 100 UNIT in DEXTROSE 5% 100ML 95 ML IV SCH (12:00)
[2017-08-15] MEDS: PROPOFOL IV EMULSION 10MG/ML 100 ML IV SCH (16:15)
[2017-08-15] MEDS ORDERED: HYDROMORPHONE 20MG/ NS 100ML IV PRN (20:45)
[2017-08-16] VITALS (83 sets, daily range): BP systolic 81–145; BP diastolic 35–79
[2017-08-16 04:35] LABS: BASOPHILS % 0.2 % (0.0-1.0); EOSINOPHILS % 0.1 % (0.0-6.0); HEMATOCRIT 27.1 % (34.2-44.1); HEMOGLOBIN 9.2 g/dL (12.0-16.0); LYMPHOCYTES # (AUTO) 1.1 (1.0-3.2); LYMPHOCYTES % 6.7 % (18.0-39.1); MEAN CORPUSCULAR HGB CONC 33.9 g/dL (31-35); MEAN CORPUSCULAR VOLUME 88.3 fL (81-99); MONOCYTES # (AUTO) 1.3 (0.2-0.8); MONOCYTES % 7.7 % (4.4-11.3); NEUTROPHILS # (AUTO) 13.8 (2.1-6.9); NEUTROPHILS % 84.2 % (38.7-80.0); PLATELET COUNT 58 x10e3/uL (140-360); RED BLOOD COUNT 3.07 x10e6/uL (3.6-5.1); RED CELL DISTRIBUTION WIDTH 17.7 % (11.7-14.4)
[2017-08-16 04:48] LABS: ANION GAP 12.3 mmol/L (8-16); CALCIUM 7.7 mg/dL (8.4-10.2); CREATININE, SERUM 3.76 mg/dL (0.57-1.11); POTASSIUM 4.3 mmol/L (3.5-5.1)
[2017-08-16 04:54] LABS: BAND NEUTROPHILS % (MANUAL) 2 %; LYMPHOCYTES % (MANUAL) 7 % (19-48); MONOCYTES % (MANUAL) 6 % (3.4-9.0); NEUTROPHILS % (MANUAL) 85 % (40-74)
[2017-08-16 04:55] LABS: ANISOCYTOSIS SLIGHT; PLATELET ESTIMATE MARKEDLY DECREASED; PLATELET MORPHOLOGY COMMENT FEW LARGE; RBC MORPHOLOGY COMMENT NORMAL
[2017-08-16 05:03] LABS: MAGNESIUM 1.7 MG/DL (1.3-2.1)
[2017-08-16] MEDS: SODIUM CHLORIDE 0.9% 250ML IRRIG IR SCH ×5 (05:24→18:18)
[2017-08-16] MEDS: INSULIN LISPRO 100 UNIT/1 ML 3ML VIAL SQ SCH ×4 (06:00→18:00)
--- NOTE | 2017-08-16 06:46 | Diagnostic Imaging Report ---
EXAM: XR CHEST 1 VIEW DATE: 08/16/2017 7:00 AM INDICATION: Intubated COMPARISON: 08/13/2017 FINDINGS: Limitations: Underpenetration, low lung volumes, and body habitus limited evaluation. Lines and Tubes: ET tube tip above the kai and NG tube coursing past the inferior field of view stable. There is a right IJ central venous catheter with tip overlying SVC. Heart and Mediastinum: Prominent. Lungs and Pleura: Poorly evaluated. Mild edema and basilar atelectasis suspected. Trace effusions difficult to exclude. Bones and Soft Tissues: No acute findings. IMPRESSION: 1. Limited exam with no significant interval change. Signed by: Dr. Ray Tafoya MD on 08/16/2017 6:43 AM
--- NOTE | 2017-08-16 07:47 | Diagnostic Imaging Report ---
PROCEDURE:ULTRASOUND GUIDANCE FOR VASCULAR ACCESS COMPARISON:None. INDICATIONS:Not provided. FINDINGS:Left internal jugular vein is noted to be patent. Ultrasound guidance was utilized for access for temporary hemodialysis line placement. CONCLUSION:Patent left internal jugular vein. Successful ultrasound guidance for temporary hemodialysis line placement. Dictated by: Tapan Durand M.D. on 08/16/2017 at 7:47 Electronically approved by: Tapan Durand M.D. on 08/16/2017 at 7:47
--- NOTE | 2017-08-16 07:47 | Diagnostic Imaging Report ---
PROCEDURE:NON-TUNNELLED CVC CATH PLACMNT COMPARISON:None. INDICATIONS: Need for hemodialysis access COMPLICATIONS: No immediate MEDICATIONS: Lidocaine 1% for local anesthesia BLOOD LOSS: Minimal Blood products administered: None Sedation/anesthesia: None Condition at completion of procedure: Critical Disposition: Remain in ICU PROCEDURE: Informed consent was obtained from the next of kin and documented in the medical record after discussion of risks and benefits. Due to presence of a right subclavian central venous port catheter and right internal jugular central venous catheter, the decision was made to proceed with temporary hemodialysis catheter placement via the left internal jugular vein. Preliminary sonographic evaluation confirmed patency of the left internal jugular vein, evidenced by compressibility. The left cervical region was prepped and draped in the standard sterile fashion. 1% lidocaine was infiltrated into the skin and subcutaneous tissues for local anesthesia. Then under continuous sonographic guidance, a 21 gauge micropuncture needle was used to access the left internal jugular vein. A permanent sonographic image was stored in PACS. A 0.018 inch wire was advanced centrally and the needle was exchanged for a 5 Amharic micropuncture sheath. The wire was then upsized to a 0.035 inch J-wire which was then advanced to a depth of approximately 30 cm with continuous cardiac rhythm monitoring. The micropuncture sheath was removed and the tract was dilated. Then, a 12 Amharic, 20 cm dual-lumen temporary hemodialysis catheter was advanced over the wire to a depth of 19 cm. The wire was removed. Each lumen was tested and showed brisk bidirectional flow. Each lumen was then flushed with sterile saline. The catheter was secured to skin with monofilament nylon suture and a sterile dressing was applied. The patient tolerated the procedure well without immediate complications. CONCLUSION: Successful placement of a 12 Amharic, 20 cm dual-lumen temporary hemodialysis catheter via a left internal jugular approach under sonographic guidance. A post procedure chest radiograph was requested upon completion of the procedure to confirm line positioning prior to use. Dictated by: Tapan Durand M.D. on 08/16/2017 at 7:47 Electronically approved by: Tapan Durand M.D. on 08/16/2017 at 7:47
[2017-08-16] MEDS: LEVOFLOXACIN 500MG/D5W 100ML 100 ML IV SCH (07:48)
[2017-08-16] MEDS ORDERED: HYDROMORPHONE 1MG/1ML INJ IV PRN (09:15)
[2017-08-16] MEDS ORDERED: ALBUMIN HUMAN 50 ML IV PRN (10:00)
[2017-08-16] MEDS ORDERED: MEROPENEM 500MG 500 MG in SODIUM CHLORIDE 0.9% 50ML 50 ML IV SCH (11:30)
[2017-08-16 11:57] LABS: AMYLASE 183 U/L (25-125); LIPASE 28 U/L (8-78)
[2017-08-16] MEDS: VASOPRESSIN 100 UNIT in DEXTROSE 5% 100ML 95 ML IV SCH (12:00)
--- NOTE | 2017-08-16 12:29 | Consultation ---
DATE OF CONSULTATION: REASON FOR CONSULTATION: Sepsis. HISTORY OF PRESENT ILLNESS: This patient, who is a 72-year-old white female, was admitted on August [address] Oliva. She had retroperitoneal tumor, metastatic cancer, carcinoma of the colon. She underwent exploratory laparotomy, resection of retroperitoneal tumor, repair of superior mesenteric vein, excision of omental masses. The patient has been in the intensive care unit since then. The patient has underlying history of hypertension, diabetes, obesity. She is currently in the hospital since admission in the intensive care unit. Infectious disease was consulted today to manage her antibiotic and to make recommendation. The patient underwent resection of her retroperitoneal tumor. She was admitted and intubated. She has been on the vent since then. There is no family at the bedside. PAST SURGICAL HISTORY: Obesity, hypertension, diabetes, recently diagnosed tumor. PAST SURGICAL HISTORY: Tubal ligation, throat surgery, laparoscopic cholecystectomy, and then lap-assisted right colon resection in 2016. FAMILY HISTORY: There is no smoking, drug abuse or alcohol abuse. She used to smoke, quit in 2004. ALLERGIES: PENICILLIN, CEPHALEXIN, GENTAMICIN. MEDICATIONS: She has been on Levaquin, lorazepam, dopamine, furosemide. REVIEW OF SYSTEMS: Could not be obtained. LABORATORY DATA: Reviewed. Blood cultures: No growth at 48 hours. Urine culture is negative. Her white count today is 16.3. It was 27.28. Hemoglobin 10 and platelets of 88. Sodium 136, potassium 4.3, creatinine 3.76. The patient is currently on hemodialysis. PHYSICAL EXAMINATION GENERAL: She is intubated and sedated. VITALS: Stable currently, but she is running a fever of 100.6. She has been running a fever since July 19 or . HEENT: Normocephalic. Oral intubation. CHEST: A few crackles bilaterally. COR: S1 and S2. ABDOMEN: Soft. Bowel sounds are present. No tenderness. EXTREMITIES: No edema. SKIN: No rash. The patient has ET intubation. She has NG tube and right IJ catheter. IMPRESSION 1. Fever in a patient status post abdominal surgery and respiratory failure and pneumonia. Concern is abdominal infection. However, also could be other. I am concerned about her leukocytosis. I would recommend to put her on meropenem 500 daily. Discontinue Levaquin. Add Flagyl. Will give her a gram of vancomycin. Recheck her blood cultures. Recheck CBC. Also obtain amylase and lipase. 2. Acute tubular necrosis of chronic kidney disease. 3. Diabetes. 4. Obesity. Since admission, she has been having a high white count, but there was trending up. We will see how she will do with the broad coverage antibiotic. Will get the cultures and uric acid, amylase and lipase. We will see how she will do clinically and then reassess. Job#: [id number]
[2017-08-16] MEDS: FUROSEMIDE INJ 400 MG in MANNITOL 20% 500ML 500 ML IV SCH (13:14)
[2017-08-16] MEDS: SODIUM BICARBONATE 8.4% 75 ML in SODIUM CHLORIDE 0.45% 1,000 ML IV SCH (13:15)
[2017-08-16] MEDS: PANTOPRAZOLE 40 MG 10ML VIAL IV SCH (13:16)
[2017-08-16] MEDS: NOREPINEPHRINE INJ 4MG/4ML 8 MG in DEXTROSE 5% 250ML 250 ML IV PRN (13:16)
[2017-08-16] MEDS: METRONIDAZOLE 500MG/NS 100ML 100 ML IV SCH ×2 (13:16→16:38)
[2017-08-16 15:59] LABS: ABG HCO3 27 mmol/L (23-28); ABG PCO2 37 mmHg (41-51); ABG PH 7.46 (7.31-7.41); ABG PO2 94 mmHg (80-105)
[2017-08-16] MEDS: PROPOFOL IV EMULSION 10MG/ML 100 ML IV SCH (16:15)
[2017-08-16] MEDS: MEROPENEM 500 MG VIAL IV SCH (16:37)
[2017-08-16] MEDS ORDERED: HYDROMORPHONE 100 ML IV PRN (20:00)
[2017-08-17] VITALS (92 sets, daily range): BP systolic 69–141; BP diastolic 35–99
[2017-08-17] MEDS: METRONIDAZOLE 500MG/NS 100ML 100 ML IV SCH ×3 (01:24→16:11)
[2017-08-17] MEDS: SODIUM CHLORIDE 0.9% 250ML IRRIG IR SCH ×6 (02:30→21:09)
[2017-08-17] MEDS: INSULIN LISPRO 100 UNIT/1 ML 3ML VIAL SQ SCH ×4 (06:00→18:00)
[2017-08-17 06:10] LABS: BASOPHILS # (AUTO) 0.1 (0.0-0.1); BASOPHILS % 0.4 % (0.0-1.0); EOSINOPHILS % 0.3 % (0.0-6.0); HEMATOCRIT 24.8 % (34.2-44.1); HEMOGLOBIN 8.3 g/dL (12.0-16.0); LYMPHOCYTES # (AUTO) 0.8 (1.0-3.2); LYMPHOCYTES % 5.7 % (18.0-39.1); MEAN CORPUSCULAR HEMOGLOBIN 30.1 pg (28-32); MEAN CORPUSCULAR HGB CONC 33.5 g/dL (31-35); MEAN CORPUSCULAR VOLUME 89.9 fL (81-99); MONOCYTES # (AUTO) 1.5 (0.2-0.8); MONOCYTES % 10.4 % (4.4-11.3); NEUTROPHILS # (AUTO) 11.2 (2.1-6.9); NEUTROPHILS % 78.6 % (38.7-80.0); RED BLOOD COUNT 2.76 x10e6/uL (3.6-5.1); RED CELL DISTRIBUTION WIDTH 17.9 % (11.7-14.4)
[2017-08-17 06:16] LABS: PLATELET COUNT 41 x10e3/uL (140-360)
--- NOTE | 2017-08-17 06:30 | Diagnostic Imaging Report ---
ADDENDUM #1 Note there is a right port and bilateral IJ central venous catheters; their courses overlap in the region of the SVC/cavoatrial junction. Signed by: Dr Earnestine Otero MD on 08/18/2017 5:50 AM ORIGINAL REPORT CHEST SINGLE (PORTABLE), 08/17/2017 7:00 AM Technique: CHEST SINGLE (PORTABLE) Comparison: 08/16/2017 Clinical history: Respiratory failure Findings: See Impression Impression: Limited by body habitus and portable technique 1. Lines/Tubes: Stable visualized ET tube, subdiaphragmatic NG tube. 2. Stable enlarged cardiomediastinal silhouette. 3. Lungs and pleural spaces again poorly assessed. Mild bibasilar opacity which may be due to soft tissue attenuation, atelectasis/edema, infection or aspiration. Signed by: Dr Earnestine Otero MD on 08/17/2017 6:27 AM
[2017-08-17 06:31] LABS: ALBUMIN/GLOBULIN RATIO 1.1 (0.8-2.0); CALCIUM 8.1 mg/dL (8.4-10.2); CREATININE, SERUM 3.01 mg/dL (0.57-1.11)
[2017-08-17 07:17] LABS: MAGNESIUM 1.5 MG/DL (1.3-2.1); PHOSPHORUS 3.5 MG/DL (2.3-4.7)
[2017-08-17 07:23] LABS: BAND NEUTROPHILS % (MANUAL) 3 %; LYMPHOCYTES % (MANUAL) 3 % (19-48); MONOCYTES % (MANUAL) 15 % (3.4-9.0); NEUTROPHILS % (MANUAL) 79 % (40-74)
[2017-08-17 07:24] LABS: HYPOCHROMASIA MODERATE; RBC MORPHOLOGY COMMENT NORMAL
[2017-08-17 07:25] LABS: ANISOCYTOSIS SLIGHT; PLATELET ESTIMATE MODERATELY DECREASED
[2017-08-17 07:26] LABS: PLATELET MORPHOLOGY COMMENT FEW LARGE
[2017-08-17] MEDS ORDERED: MAGNESIUM SULFATE 2GM/50ML 50 ML IV ONE ×2 (10:00→15:53)
[2017-08-17] MEDS ORDERED: MIDAZOLAM HCL 2 MG/2 ML VIAL IV STA (10:02)
[2017-08-17] MEDS ORDERED: HYDROMORPHONE 1MG/1ML INJ IV STA (10:10)
[2017-08-17] MEDS: PANTOPRAZOLE 40 MG 10ML VIAL IV SCH (10:17)
[2017-08-17 10:25] LABS: ABG HCO3 28 mmol/L (23-28); ABG PCO2 31 mmHg (41-51); ABG PH 7.56 (7.31-7.41); ABG PO2 100 mmHg (80-105)
[2017-08-17] MEDS ORDERED: SODIUM CHLORIDE 0.9% 1000ML 2,000 ML IV PRN (13:45)
[2017-08-17] MEDS ORDERED: ALBUMIN HUMAN 12.5GM / 50ML IV PRN (13:45)
[2017-08-17] MEDS ORDERED: HEPARIN SOD (PORCINE) 1000 UNIT/ML SDV IV PRN (13:45)
[2017-08-17] MEDS: FUROSEMIDE INJ 400 MG in MANNITOL 20% 500ML 500 ML IV SCH (15:46)
[2017-08-17] MEDS: MEROPENEM 500 MG VIAL IV SCH (16:09)
[2017-08-17] MEDS ORDERED: SODIUM CHLORIDE 0.9% 500ML 500 ML ONE (16:16)
[2017-08-17] MEDS ORDERED: ACETAMINOPHEN 325 MG/10 ML UDC NG PRN (16:45)
[2017-08-17] MEDS ORDERED: ACETAMINOPHEN 1000 MG/100 ML IV PRN (21:15)
[2017-08-17] MEDS: LORAZEPAM INJ 2 MG/ML VIAL IV PRN (23:05)
[2017-08-18] VITALS (111 sets, daily range): BP systolic 70–133; BP diastolic 37–92
[2017-08-18] MEDS: METRONIDAZOLE 500MG/NS 100ML 100 ML IV SCH ×3 (02:00→17:27)
[2017-08-18] MEDS: SODIUM CHLORIDE 0.9% 250ML IRRIG IR SCH ×4 (02:39→12:57)
[2017-08-18 05:39] LABS: BASOPHILS % 0.3 % (0.0-1.0); EOSINOPHILS % 0.3 % (0.0-6.0); HEMATOCRIT 24.9 % (34.2-44.1); HEMOGLOBIN 8.1 g/dL (12.0-16.0); LYMPHOCYTES # (AUTO) 0.9 (1.0-3.2); LYMPHOCYTES % 6.8 % (18.0-39.1); MEAN CORPUSCULAR HEMOGLOBIN 29.5 pg (28-32); MEAN CORPUSCULAR HGB CONC 32.5 g/dL (31-35); MEAN CORPUSCULAR VOLUME 90.5 fL (81-99); MONOCYTES # (AUTO) 1.4 (0.2-0.8); MONOCYTES % 10.1 % (4.4-11.3); NEUTROPHILS # (AUTO) 10.6 (2.1-6.9); NEUTROPHILS % 76.8 % (38.7-80.0); PLATELET COUNT 50 x10e3/uL (140-360); RED BLOOD COUNT 2.75 x10e6/uL (3.6-5.1)
--- NOTE | 2017-08-18 05:51 | Diagnostic Imaging Report ---
CHEST SINGLE (PORTABLE), 08/18/2017 7:00 AM Technique: CHEST SINGLE (PORTABLE) Comparison: Previous day Clinical history: Congestive heart failure Findings: See Impression Impression: Limited by body habitus, portable technique and motion artifact 1. Lines/Tubes: ET tube is no longer visualized. NG tube extends subdiaphragmatically. Right port, and bilateral central venous catheters are poorly visualized, grossly unchanged. 2. Stable enlarged cardiomediastinal silhouette. 3. Lungs and pleural spaces again poorly assessed. Mild bibasilar opacity which may be due to atelectasis, infection or aspiration. Signed by: Dr Earnestine Otero MD on 08/18/2017 5:47 AM
[2017-08-18 05:57] LABS: ALBUMIN 1.9 g/dL (3.5-5.0); ANION GAP 14.9 mmol/L (8-16); CALCIUM 8.3 mg/dL (8.4-10.2); CREATININE, SERUM 2.99 mg/dL (0.57-1.11); POTASSIUM 3.9 mmol/L (3.5-5.1)
[2017-08-18] MEDS: INSULIN LISPRO 100 UNIT/1 ML 3ML VIAL SQ SCH ×4 (06:00→18:00)
[2017-08-18 06:06] LABS: MAGNESIUM 2.1 MG/DL (1.3-2.1); PHOSPHORUS 4.1 MG/DL (2.3-4.7)
[2017-08-18 07:33] LABS: LYMPHOCYTES % (MANUAL) 3 % (19-48); METAMYELOCYTES % (MANUAL) 3 % (0-0); MONOCYTES % (MANUAL) 8 % (3.4-9.0); NEUTROPHILS % (MANUAL) 86 % (40-74)
[2017-08-18 07:34] LABS: PLATELET ESTIMATE MODERATELY DECREASED; PLATELET MORPHOLOGY COMMENT FEW GIANT; RBC MORPHOLOGY COMMENT NORMAL
[2017-08-18 07:35] LABS: ANISOCYTOSIS SLIGHT; HYPOCHROMASIA SLIGHT
[2017-08-18] MEDS: PANTOPRAZOLE 40 MG 10ML VIAL IV SCH (09:14)
[2017-08-18] MEDS: FUROSEMIDE INJ 400 MG in MANNITOL 20% 500ML 500 ML IV SCH (09:21)
[2017-08-18] MEDS ORDERED: MANNITOL 25% 12.5GM/50ML 100 ML ONE (09:27)
[2017-08-18] MEDS ORDERED: SODIUM CHLORIDE 0.9% 1000ML 2,000 ML IV PRN (09:45)
[2017-08-18] MEDS ORDERED: ALBUMIN HUMAN 12.5GM / 50ML IV PRN (09:45)
[2017-08-18] MEDS ORDERED: SODIUM CHLORIDE 0.9% 250ML 500 ML IV PRN (09:45)
[2017-08-18] MEDS ORDERED: MANNITOL 25% 12.5GM/50 ML VIAL IV PRN (09:45)
[2017-08-18] MEDS ORDERED: HEPARIN SOD (PORCINE) 1000 UNIT/ML SDV IV PRN (09:45)
[2017-08-18] MEDS: LORAZEPAM INJ 2 MG/ML VIAL IV PRN ×2 (10:17→21:30)
[2017-08-18] MEDS ORDERED: ACETAMINOPHEN 1000 MG/100 ML IV PRN (11:15)
[2017-08-18] MEDS: NOREPINEPHRINE 8 MG/D5W 250 ML 250 ML IV PRN (11:45)
[2017-08-18] MEDS: MEROPENEM 500 MG VIAL IV SCH (12:01)
[2017-08-18] MEDS: VANCOMYCIN 1GM/NS 250 ML 250 ML IV SCH (12:59)
[2017-08-18] MEDS: CENTRAL TPN FORMULA 1 BAG IV SCH (20:00)
[2017-08-18] MEDS ORDERED: CLOPIDOGREL75 MG PO (20:00)
[2017-08-18] MEDS ORDERED: ASPIRIN325 MG PO (20:00)
[2017-08-18] MEDS ORDERED: COLACE100 MG PO (20:01)
[2017-08-18] MEDS ORDERED: LISINOPRIL10 MG PO (20:02)
[2017-08-18] MEDS ORDERED: MONTELUKAST SOD10 MG PO (20:07)
[2017-08-18] MEDS ORDERED: MIRTAZAPINE15 MG PO (20:07)
[2017-08-18] MEDS ORDERED: namzaric PO (20:15)
[2017-08-18] MEDS ORDERED: SERTRALINE HCL50 MG PO (20:16)
[2017-08-18] MEDS ORDERED: RANEXA500 MG PO (20:16)
[2017-08-19] VITALS (93 sets, daily range): BP systolic 70–123; BP diastolic 32–78
[2017-08-19] MEDS: INSULIN LISPRO 100 UNIT/1 ML 3ML VIAL SQ SCH ×4 (01:11→18:43)
[2017-08-19] MEDS: METRONIDAZOLE 500MG/NS 100ML 100 ML IV SCH ×3 (01:18→15:52)
[2017-08-19 04:47] LABS: BASOPHILS # (AUTO) 0.1 (0.0-0.1); BASOPHILS % 0.4 % (0.0-1.0); EOSINOPHILS % 0.1 % (0.0-6.0); HEMATOCRIT 25.7 % (34.2-44.1); LYMPHOCYTES # (AUTO) 0.8 (1.0-3.2); LYMPHOCYTES % 5.1 % (18.0-39.1); MEAN CORPUSCULAR HEMOGLOBIN 29.6 pg (28-32); MEAN CORPUSCULAR HGB CONC 31.1 g/dL (31-35); MEAN CORPUSCULAR VOLUME 95.2 fL (81-99); MONOCYTES # (AUTO) 1.2 (0.2-0.8); MONOCYTES % 7.5 % (4.4-11.3); NEUTROPHILS # (AUTO) 13.3 (2.1-6.9); NEUTROPHILS % 82.3 % (38.7-80.0); PLATELET COUNT 50 x10e3/uL (140-360); RED CELL DISTRIBUTION WIDTH 18.8 % (11.7-14.4)
[2017-08-19 05:07] LABS: MAGNESIUM 2.3 MG/DL (1.3-2.1); PHOSPHORUS 4.3 MG/DL (2.3-4.7)
[2017-08-19 05:09] LABS: ALBUMIN 2.1 g/dL (3.5-5.0); ALBUMIN/GLOBULIN RATIO 1.2 (0.8-2.0); ANION GAP 13.8 mmol/L (8-16); CALCIUM 8.3 mg/dL (8.4-10.2); CREATININE, SERUM 3.36 mg/dL (0.57-1.11); POTASSIUM 3.8 mmol/L (3.5-5.1)
[2017-08-19 05:33] LABS: ANISOCYTOSIS SLIGHT; BAND NEUTROPHILS % (MANUAL) 9 %; LYMPHOCYTES % (MANUAL) 4 % (19-48); MONOCYTES % (MANUAL) 4 % (3.4-9.0); MYELOCYTES % (MANUAL) 1 % (0-0); NEUTROPHILS % (MANUAL) 82 % (40-74); NUCLEATED RED BLOOD CELLS 1; PLATELET ESTIMATE MARKEDLY DECREASED; PLATELET MORPHOLOGY COMMENT NORMAL; RBC MORPHOLOGY COMMENT NORMAL
[2017-08-19 05:35] LABS: POLYCHROMASIA FEW
[2017-08-19] MEDS: PANTOPRAZOLE 40 MG 10ML VIAL IV SCH (07:54)
[2017-08-19] MEDS: BALSAM PERU/CASTOR OIL 60 GM OINT...G. TP SCH ×2 (07:54→17:34)
[2017-08-19] MEDS ORDERED: ALBUMIN 5% 250ML IV ONE (10:30)
[2017-08-19] MEDS ORDERED: ALBUMIN HUMAN 100 ML IV SCH (11:00)
[2017-08-19] MEDS ORDERED: ALBUMIN 5% 500 ML IV SCH (12:00)
[2017-08-19] MEDS: MEROPENEM 500 MG VIAL IV SCH (12:31)
[2017-08-19] MEDS: MICAFUNGIN SODIUM 100 ML IV SCH (14:37)
[2017-08-19] MEDS: ACETAMINOPHEN 1000 MG/100 ML IV PRN ×2 (15:30→19:51)
[2017-08-19] MEDS: CENTRAL TPN FORMULA 1 BAG IV SCH (21:00)
[2017-08-19] MEDS: LORAZEPAM INJ 2 MG/ML VIAL IV PRN (22:30)
--- NOTE | 2017-08-19 23:48 | Consultation ---
DATE OF CONSULTATION: August 19, 2017 at 4:30 p.m. NEUROLOGICAL CONSULTATION REASON FOR CONSULTATION: Altered mental status. This is a 72-year-old female who underwent exploratory laparotomy for removal of large retroperitoneal mass and resection of colon. She suffered respiratory distress. She was intubated. She developed hemorrhagic sepsis associated with hypotension. The patient later was extubated and now she is very obtunded, not following commands, the reason for which neurologic evaluation has been requested. She has history, as mentioned, of colon cancer, diabetes mellitus, hypertension, and now she has developed also acute tubular necrosis. PAST SURGICAL HISTORY: As mentioned above, besides also she had cholecystectomy. She had tubal ligation and colon resection in 2016. MEDICATIONS: List of medications has been reviewed in detail. She is on multiple medications and multiple antibiotics and all the medications have been reviewed in detail. ALLERGIES: GENTAMICIN, CEPHALEXIN AND PENICILLIN. She has not been sedated, but she has been given Ativan 1 mg q.6 h. p.r.n. just for agitation. REVIEW OF SYSTEMS: Unable to perform because of the mental status. PHYSICAL EXAMINATION VITAL SIGNS: At the time of this examination, blood pressure 86/89. NEUROLOGIC EXAM: The patient is rather obtunded and on stimulation and calling her name, she is able to open her eyes. She seems to have some eye tracking. Pupils are equal and reactive. Doll's movement is present. There is a little bit of icterus in both eyes. The patient is able to follow simple commands like squeezing my hand, and asking to move her feet she is able to move her feet, and asking to see my hand and see how many fingers, she is able to say 2 fingers. So, she is having some good cognitive response. Stimulation shows withdrawal of both arms and both legs. No evidence of focal weakness. Plantar stimulation is down bilaterally. NECK: Supple. No evidence of any meningeal signs. LABORATORY DATA: CBC shows a white count of 16,150, hemoglobin 8, hematocrit 25.7, platelets low at 50. Chemistry: Sodium 141, potassium 3.8, BUN 45, creatinine 3.36. Estimated GFR is quite low, 14. Glucose 260. Liver enzymes slightly elevated. Cultures of urine and blood have been negative. The patient is on multiple antibiotics. Chest x-ray with marked basilar opacity, which may be due to soft tissue attenuation, atelectasis, infection or aspiration. IMPRESSION 1. Metabolic encephalopathy, multifactorial. 2. Renal insufficiency. 3. Removal of large peritoneal tumor, adenocarcinoma. 4. History of hypertension and diabetes. 5. Questionable sepsis. I do not think we are dealing with cerebrovascular event at the present time. It seems to be more metabolic. The patient is able to open her eyes and follow very simple commands, which is a good sign. Will monitor closely. Family members not present for discussion about this patient. Job#: [id number]
[2017-08-20] VITALS (95 sets, daily range): BP systolic 66–134; BP diastolic 34–80
[2017-08-20] MEDS: METRONIDAZOLE 500MG/NS 100ML 100 ML IV SCH ×3 (01:12→17:00)
[2017-08-20] MEDS: NOREPINEPHRINE 8 MG/D5W 250 ML 250 ML IV PRN (03:38)
[2017-08-20 05:18] LABS: BASOPHILS % 0.2 % (0.0-1.0); EOSINOPHILS # (AUTO) 0.1 (0.0-0.4); EOSINOPHILS % 0.3 % (0.0-6.0); HEMATOCRIT 24.6 % (34.2-44.1); LYMPHOCYTES % 4.9 % (18.0-39.1); MEAN CORPUSCULAR HEMOGLOBIN 30.2 pg (28-32); MEAN CORPUSCULAR HGB CONC 31.7 g/dL (31-35); MEAN CORPUSCULAR VOLUME 95.3 fL (81-99); MONOCYTES # (AUTO) 1.3 (0.2-0.8); MONOCYTES % 6.9 % (4.4-11.3); NEUTROPHILS % 83.2 % (38.7-80.0); PLATELET COUNT 54 x10e3/uL (140-360); RED BLOOD COUNT 2.58 x10e6/uL (3.6-5.1); RED CELL DISTRIBUTION WIDTH 19.5 % (11.7-14.4)
[2017-08-20 05:23] LABS: HEMOGLOBIN 7.8 g/dL (12.0-16.0)
[2017-08-20] MEDS: INSULIN LISPRO 100 UNIT/1 ML 3ML VIAL SQ SCH ×4 (05:26→18:31)
[2017-08-20 05:32] LABS: ANION GAP 12.8 mmol/L (8-16); CALCIUM 8.1 mg/dL (8.4-10.2); CREATININE, SERUM 4.38 mg/dL (0.57-1.11); MAGNESIUM 2.6 MG/DL (1.3-2.1); POTASSIUM 3.8 mmol/L (3.5-5.1)
--- NOTE | 2017-08-20 05:46 | Diagnostic Imaging Report ---
CHEST SINGLE (PORTABLE), 08/20/2017 7:00 AM Technique: CHEST SINGLE (PORTABLE) Comparison: Previous day Clinical history: Shortness of breath Findings: See Impression Impression: Limited by body habitus, portable technique and motion artifact 1. Lines/Tubes: Removal of NG tube. Right port, and bilateral central venous catheters are poorly visualized, grossly unchanged. 2. Stable enlarged cardiomediastinal silhouette. 3. Mild bibasilar opacity which may be due to atelectasis, infection or aspiration with small effusions. Signed by: Dr Earnestine Otero MD on 08/20/2017 5:43 AM
[2017-08-20 07:10] LABS: BAND NEUTROPHILS % (MANUAL) 4 %; LYMPHOCYTES % (MANUAL) 5 % (19-48); MONOCYTES % (MANUAL) 7 % (3.4-9.0); NEUTROPHILS % (MANUAL) 84 % (40-74); NUCLEATED RED BLOOD CELLS 1
[2017-08-20 07:13] LABS: ANISOCYTOSIS MODERATE; PLATELET ESTIMATE MODERATELY DECREASED; PLATELET MORPHOLOGY COMMENT NORMAL; RBC MORPHOLOGY COMMENT ABNORMAL
[2017-08-20] MEDS: BALSAM PERU/CASTOR OIL 60 GM OINT...G. TP SCH ×2 (08:24→17:10)
[2017-08-20] MEDS ORDERED: MYCAFUNGIN SODIUM 100 MG/100 ML BAG IV SCH (09:00)
[2017-08-20] MEDS ORDERED: SODIUM CHLORIDE 0.9% 250ML 250 ML IV ONE (10:00)
[2017-08-20] MEDS: LORAZEPAM INJ 2 MG/ML VIAL IV PRN (12:22)
[2017-08-20] MEDS: MEROPENEM 500 MG VIAL IV SCH (14:10)
[2017-08-20] MEDS: PANTOPRAZOLE 40 MG 10ML VIAL IV SCH (14:10)
--- NOTE | 2017-08-20 14:29 | Diagnostic Imaging Report ---
PROCEDURE: A single AP view of the chest. COMPARISON: Portable chest 08/20/2017 at 0500 hrs.. INDICATIONS: CENTRAL LINE PLACEMENT FINDINGS: Lines/tubes: Interval exchange of the left internal jugular temporary double lumen hemodialysis catheter for a triple lumen temporary central venous catheter with the tip projecting over the expected region of the superior vena cava. Interval placement of a right internal jugular temporary central venous hemodialysis catheter with the tip projecting over the expected region of the right atrium. No interval change in proper position of the right internal jugular temporary triple lumen central venous catheter. Right subclavian tunneled chest port with tip projecting over the expected region of the superior vena cava. Lungs: Bibasilar atelectasis. No parenchymal mass. Pleura: Small bilateral pleural effusions. No pneumothorax. Heart and mediastinum: The heart and the mediastinum are unremarkable. Bones: No acute bony abnormality. IMPRESSION: Lines and support catheters as above. Small bilateral pleural effusions. Dictated by: Ferdinand Willis M.D. on 08/20/2017 at 14:29 Electronically approved by: Ferdinand Willis M.D. on 08/20/2017 at 14:29
[2017-08-20] MEDS ORDERED: SODIUM CHLORIDE 0.9% 1000ML 1,000 ML ONE (15:15)
--- NOTE | 2017-08-20 15:46 | Diagnostic Imaging Report ---
PROCEDURE:US ABDOMEN LIMITED COMPARISON:None. INDICATIONS:ABDOMINAL WOUND DRAINAGE, R/O ABSCESS FINDINGS: Grayscale longitudinal and transverse images of the subcutaneous soft tissues in the region of the skin pawan was performed. No abscesses or drainable fluid collections identified. CONCLUSION: No drainable fluid collections. Dictated by: Nish Bardales M.D. on 08/20/2017 at 15:46 Electronically approved by: Nish Bardales M.D. on 08/20/2017 at 15:46
[2017-08-20] MEDS ORDERED: ACETAMINOPHEN 325 MG SUPP PR PRN (16:30)
[2017-08-20 16:47] LABS: BASOPHILS # (AUTO) 0.1 (0.0-0.1); BASOPHILS % 0.3 % (0.0-1.0); EOSINOPHILS # (AUTO) 0.1 (0.0-0.4); EOSINOPHILS % 0.4 % (0.0-6.0); HEMATOCRIT 25.4 % (34.2-44.1); HEMOGLOBIN 8.1 g/dL (12.0-16.0); LYMPHOCYTES % 4.4 % (18.0-39.1); MEAN CORPUSCULAR HEMOGLOBIN 30.6 pg (28-32); MEAN CORPUSCULAR HGB CONC 31.9 g/dL (31-35); MEAN CORPUSCULAR VOLUME 95.8 fL (81-99); MONOCYTES % 4.3 % (4.4-11.3); NEUTROPHILS % 86.8 % (38.7-80.0); RED BLOOD COUNT 2.65 x10e6/uL (3.6-5.1); RED CELL DISTRIBUTION WIDTH 19.9 % (11.7-14.4)
[2017-08-20 16:50] LABS: PLATELET COUNT 57 x10e3/uL (140-360)
[2017-08-20] MEDS: SODIUM CHLORIDE 0.9% 500ML 500 ML IV SCH ×3 (17:01→17:32)
[2017-08-20 17:07] LABS: ALBUMIN 1.2 g/dL (3.5-5.0); ALBUMIN/GLOBULIN RATIO 1.2 (0.8-2.0); ANION GAP 8.1 mmol/L (8-16); CREATININE, SERUM 2.04 mg/dL (0.57-1.11)
[2017-08-20 17:11] LABS: CALCIUM 4.3 mg/dL (8.4-10.2); POTASSIUM 2.1 mmol/L (3.5-5.1)
[2017-08-20 17:39] LABS: ALBUMIN 2.6 g/dL (3.5-5.0); ANION GAP 15.8 mmol/L (8-16); CALCIUM 8.6 mg/dL (8.4-10.2); CREATININE, SERUM 3.48 mg/dL (0.57-1.11); POTASSIUM 3.8 mmol/L (3.5-5.1)
[2017-08-20] MEDS: MICAFUNGIN SODIUM 100 ML IV SCH (19:53)
[2017-08-20] MEDS: CENTRAL TPN FORMULA 1 BAG IV SCH (20:24)
[2017-08-20] MEDS: ACETAMINOPHEN 1000 MG/100 ML IV PRN (22:15)
[2017-08-21] VITALS (91 sets, daily range): BP systolic 86–213; BP diastolic 42–202
[2017-08-21] MEDS: INSULIN LISPRO 100 UNIT/1 ML 3ML VIAL SQ SCH ×4 (00:26→18:40)
[2017-08-21] MEDS: METRONIDAZOLE 500MG/NS 100ML 100 ML IV SCH ×3 (01:00→18:38)
[2017-08-21] MEDS: LORAZEPAM INJ 2 MG/ML VIAL IV PRN (02:20)
[2017-08-21 06:56] LABS: ANION GAP 12.9 mmol/L (8-16); CALCIUM 8.3 mg/dL (8.4-10.2); CREATININE, SERUM 3.15 mg/dL (0.57-1.11); MAGNESIUM 2.2 MG/DL (1.3-2.1); PHOSPHORUS 4.2 MG/DL (2.3-4.7); POTASSIUM 3.9 mmol/L (3.5-5.1)
[2017-08-21 07:02] LABS: HEMATOCRIT 26.4 % (34.2-44.1); HEMOGLOBIN 8.4 g/dL (12.0-16.0); MEAN CORPUSCULAR HEMOGLOBIN 29.8 pg (28-32); MEAN CORPUSCULAR HGB CONC 31.8 g/dL (31-35); MEAN CORPUSCULAR VOLUME 93.6 fL (81-99); RED BLOOD COUNT 2.82 x10e6/uL (3.6-5.1)
[2017-08-21 07:03] LABS: RED CELL DISTRIBUTION WIDTH 20.7 % (11.7-14.4)
[2017-08-21 07:04] LABS: BASOPHILS # (AUTO) 0.1 (0.0-0.1); BASOPHILS % 0.3 % (0.0-1.0); EOSINOPHILS # (AUTO) 0.1 (0.0-0.4); EOSINOPHILS % 0.5 % (0.0-6.0); LYMPHOCYTES # (AUTO) 1.1 (1.0-3.2); LYMPHOCYTES % 5.7 % (18.0-39.1); MONOCYTES % 5.1 % (4.4-11.3); NEUTROPHILS # (AUTO) 16.4 (2.1-6.9); NEUTROPHILS % 84.5 % (38.7-80.0); PLATELET COUNT 39 x10e3/uL (140-360)
[2017-08-21] MEDS: VANCOMYCIN 1GM/NS 250 ML 250 ML IV SCH (07:43)
[2017-08-21 08:46] LABS: ALBUMIN 2.3 g/dL (3.5-5.0); ALBUMIN/GLOBULIN RATIO 1.2 (0.8-2.0)
--- NOTE | 2017-08-21 09:30 | Diagnostic Imaging Report ---
EXAM: CT Abdomen and Pelvis WITHOUT contrast INDICATION: \S\post op drainage \[id number] \S\0900 COMPARISON: CT abdomen and pelvis 08/14/2017 TECHNIQUE: Abdomen and pelvis were scanned utilizing a multidetector helical scanner from the lung base to the pubic symphysis without administration of IV contrast. Absence of intravenous contrast decreases sensitivity for detection of focal lesions and vascular pathology. Coronal and sagittal reformations were obtained. Routine protocol was performed. IV CONTRAST: None ORAL CONTRAST: Water COMPLICATIONS: None RADIATION DOSE: Total DLP: 889.99 mGy*cm Estimated effective dose: (DLP x 0.015 x size factor) mSv CTDIvol has been reviewed. It is below the limits set by the Radiation Protocol Committee (RPC). FINDINGS: LINES and TUBES: Paul catheter in place. LOWER THORAX: Stable small bilateral pleural effusions with adjacent atelectasis. Coronary artery calcifications. Partially visualized central catheter tip at lower cavoatrial junction HEPATOBILIARY: Left hepatic lobe appears enlarged relative to the right hepatic lobe. No focal hepatic lesions. No biliary ductal dilation. GALLBLADDER: Cholecystectomy. SPLEEN: Spleen is enlarged measuring 14.7 cm in length. PANCREAS: No focal masses or ductal dilatation. ADRENALS: No adrenal nodules KIDNEYS/URETERS: No hydronephrosis. No cystic or solid mass lesions. No stones. GI TRACT: No bowel dilation or evidence of obstruction. Postoperative changes in the transverse colon, likely post ascending colectomy. Descending and sigmoid colonic diverticula without evidence of diverticulitis. PELVIC ORGANS/BLADDER: Paul catheter in place. Bladder is decompressed. LYMPH NODES: No lymphadenopathy. VESSELS: There is moderate atherosclerotic disease in the aorta and major arterial branches. PERITONEUM / RETROPERITONEUM: No free air. Increased now moderate volume fluid attenuating ascites. Postoperative stranding related to resection of the mesenteric mass. BONES AND SOFT TISSUES: No aggressive lytic lesions. Generalized osteopenia. Moderate soft tissue edema. Bilateral calcified injection granulomas in the gluteal regions. Midline laparotomy scar. IMPRESSION: 1. Exam limited by lack of IV contrast. 2. Increased now moderate volume simple appearing ascites. No well-defined fluid collections within the limitations of the exam. 3. Left hepatic lobe enlargement may reflect early cirrhosis. Splenomegaly could be related to portal hypertension. 4. Stable small bilateral pleural effusions. Signed by: DR. Nish Bardales MD on 08/21/2017 9:27 AM
[2017-08-21] MEDS: BALSAM PERU/CASTOR OIL 60 GM OINT...G. TP SCH ×2 (09:35→17:30)
[2017-08-21] MEDS: PANTOPRAZOLE 40 MG 10ML VIAL IV SCH (09:45)
[2017-08-21 11:01] LABS: BAND NEUTROPHILS % (MANUAL) 5 %; LYMPHOCYTES % (MANUAL) 4 % (19-48); METAMYELOCYTES % (MANUAL) 1 % (0-0); MONOCYTES % (MANUAL) 3 % (3.4-9.0); MYELOCYTES % (MANUAL) 1 % (0-0); NEUTROPHILS % (MANUAL) 86 % (40-74); PLATELET ESTIMATE MODERATELY DECREASED; PLATELET MORPHOLOGY COMMENT NORMAL; RBC MORPHOLOGY COMMENT NORMAL
[2017-08-21] MEDS: MEROPENEM 500 MG VIAL IV SCH (11:30)
[2017-08-21] MEDS ORDERED: INSULIN LISPRO 100 UNIT/1 ML 3ML VIAL SQ ONE (12:30)
[2017-08-21] MEDS: MICAFUNGIN SODIUM 100 ML IV SCH (14:42)
[2017-08-21] MEDS: ACETAMINOPHEN 1000 MG/100 ML IV PRN (16:30)
[2017-08-21] MEDS: ONDANSETRON HCL INJ 2 MG/ML VIAL IV PRN (16:30)
--- NOTE | 2017-08-21 18:32 | Progress Note ---
DATE: August 21, 2017 Ms. Gonzales remains in ICU, lethargic. OBJECTIVE GENERAL: Lethargic. VITAL SIGNS: Stable. HEENT: Not icteric. NECK: Supple. CHEST: Clear. ABDOMEN: Morbidly obese. The wound looked good. There is no redness or erythema. However, there is drainage from the lower part of the wound. It is becoming more like liquid stool type of material at the present time. This is a patient who is status post exploratory laparotomy, status post resection of retroperitoneal tumor. Repair of superior mesenteric vein with omental mass. History of carcinoma of the colon, status post resection in 2016, and now there is a new metastatic adenocarcinoma of the colon. A morbidly obese patient and now with drainage from the wound. I am concerned about early fistula. The CAT scan does not reveal any abscess at the present time, but there was no IV contrast. The patient is morbidly obese. Her laboratory data was reviewed. Her white count is 19.42, hemoglobin 8.4, sodium 137, potassium 3.9, creatinine 3.15. IMPRESSION: 1. I think the patient is very ill. Prognosis is very guarded. Her problem, cancer reoccurrence, now status post surgery, I am concerned about fistula or dehiscence. 2. Chronic kidney disease. 3. Diabetes. 4. Morbidly obese patient. 5. Altered mental status, encephalopathy, metabolic. RECOMMENDATIONS: She is currently on micafungin, insulin, meropenem, vancomycin. She is well covered on antibiotics, but the issue I think is the overall prognosis. I will discuss with the attending, surgery, hematology/oncology. Prognosis is poor. Job#: [id number]
[2017-08-21] MEDS: CENTRAL TPN FORMULA 1 BAG IV SCH (20:19)
[2017-08-21] MEDS: HYDROMORPHONE 1MG/1ML INJ IV PRN (20:59)
[2017-08-22] VITALS (91 sets, daily range): BP systolic 80–134; BP diastolic 40–102
[2017-08-22] MEDS: INSULIN LISPRO 100 UNIT/1 ML 3ML VIAL SQ SCH ×4 (00:34→18:17)
[2017-08-22] MEDS: METRONIDAZOLE 500MG/NS 100ML 100 ML IV SCH ×3 (00:34→17:14)
[2017-08-22 05:47] LABS: BASOPHILS % 0.2 % (0.0-1.0); EOSINOPHILS % 0.1 % (0.0-6.0); HEMATOCRIT 26.8 % (34.2-44.1); HEMOGLOBIN 8.2 g/dL (12.0-16.0); LYMPHOCYTES # (AUTO) 0.7 (1.0-3.2); MEAN CORPUSCULAR HEMOGLOBIN 28.9 pg (28-32); MEAN CORPUSCULAR HGB CONC 30.6 g/dL (31-35); MEAN CORPUSCULAR VOLUME 94.4 fL (81-99); MONOCYTES # (AUTO) 0.7 (0.2-0.8); MONOCYTES % 4.5 % (4.4-11.3); NEUTROPHILS # (AUTO) 14.1 (2.1-6.9); NEUTROPHILS % 87.4 % (38.7-80.0); PLATELET COUNT 71 x10e3/uL (140-360); RED BLOOD COUNT 2.84 x10e6/uL (3.6-5.1); RED CELL DISTRIBUTION WIDTH 21.6 % (11.7-14.4)
[2017-08-22 06:03] LABS: ANION GAP 13.5 mmol/L (8-16); CALCIUM 8.4 mg/dL (8.4-10.2); CREATININE, SERUM 3.07 mg/dL (0.57-1.11); MAGNESIUM 2.5 MG/DL (1.3-2.1); PHOSPHORUS 5.4 MG/DL (2.3-4.7); POTASSIUM 4.5 mmol/L (3.5-5.1)
[2017-08-22] MEDS: PANTOPRAZOLE 40 MG 10ML VIAL IV SCH (08:47)
[2017-08-22] MEDS: HYDROMORPHONE 1MG/1ML INJ IV PRN ×2 (08:57→21:32)
[2017-08-22] MEDS: BALSAM PERU/CASTOR OIL 60 GM OINT...G. TP SCH ×2 (09:00→17:14)
[2017-08-22] MEDS: MEROPENEM 500 MG VIAL IV SCH (11:19)
[2017-08-22] MEDS ORDERED: INSULIN LISPRO 100 UNIT/1 ML 3ML VIAL SQ ONE (12:30)
[2017-08-22 13:58] LABS: BAND NEUTROPHILS % (MANUAL) 10 %; LYMPHOCYTES % (MANUAL) 2 % (19-48); MONOCYTES % (MANUAL) 3 % (3.4-9.0); NEUTROPHILS % (MANUAL) 85 % (40-74)
[2017-08-22 13:59] LABS: PLATELET ESTIMATE ADEQUATE; PLATELET MORPHOLOGY COMMENT NORMAL; RBC MORPHOLOGY COMMENT NORMAL
[2017-08-22] MEDS: MICAFUNGIN SODIUM 100 ML IV SCH (14:30)
[2017-08-22] MEDS ORDERED: INSULIN DETEMIR 100 UNIT/ML PEN SQ SCH (21:00)
[2017-08-22] MEDS: CENTRAL TPN FORMULA 1 BAG IV SCH (21:02)
[2017-08-23] VITALS (104 sets, daily range): BP systolic 72–153; BP diastolic 25–102
[2017-08-23] MEDS: INSULIN LISPRO 100 UNIT/1 ML 3ML VIAL SQ SCH ×5 (00:33→23:13)
--- NOTE | 2017-08-23 00:48 | Progress Note ---
DATE: Ms. Gonzales seems much better today. She is alert, oriented, up in bed. Family at bedside. Discussed with them my concern. The patient continued to have drainage from abdominal wound, now is more like a stool type of material, liquidy. The patient has no complaints. LABORATORY DATA: Reviewed. Her white count is down to 16.1, hemoglobin 8.2, hematocrit 26. Her sodium 137, potassium 4.5, glucose of 487. Her wound culture is still pending. Blood culture is negative. IMPRESSION: 1. I am concerned about fistula which is draining to the outside, stool type. Continue total parenteral nutrition. She is on metronidazole, micafungin, meropenem, and vancomycin. 2. Obesity. 3. Anemia. 4. Chronic kidney disease. Will discuss with Dr. Oliva tomorrow. May be if we can remove stitch to let the wound drain versus other. Patient has history of cancer with recurrence, which is also of concern. She had colon cancer with recurrence of metastasis. Will follow. Job#: [id number]
[2017-08-23] MEDS: METRONIDAZOLE 500MG/NS 100ML 100 ML IV SCH ×2 (01:00→07:42)
[2017-08-23 06:14] LABS: BASOPHILS # (AUTO) 0.1 (0.0-0.1); BASOPHILS % 0.3 % (0.0-1.0); EOSINOPHILS % 0.2 % (0.0-6.0); HEMOGLOBIN 8.7 g/dL (12.0-16.0); LYMPHOCYTES # (AUTO) 0.6 (1.0-3.2); MEAN CORPUSCULAR HEMOGLOBIN 28.9 pg (28-32); MEAN CORPUSCULAR HGB CONC 31.1 g/dL (31-35); MONOCYTES % 6.3 % (4.4-11.3); NEUTROPHILS % 86.2 % (38.7-80.0); PLATELET COUNT 70 x10e3/uL (140-360); RED BLOOD COUNT 3.01 x10e6/uL (3.6-5.1); RED CELL DISTRIBUTION WIDTH 21.6 % (11.7-14.4)
[2017-08-23 06:30] LABS: ANION GAP 16.5 mmol/L (8-16); CALCIUM 8.5 mg/dL (8.4-10.2); CREATININE, SERUM 3.04 mg/dL (0.57-1.11); POTASSIUM 4.5 mmol/L (3.5-5.1)
[2017-08-23] MEDS: HYDROMORPHONE 1MG/1ML INJ IV PRN (07:41)
[2017-08-23] MEDS: PANTOPRAZOLE 40 MG 10ML VIAL IV SCH (07:41)
[2017-08-23] MEDS: BALSAM PERU/CASTOR OIL 60 GM OINT...G. TP SCH ×2 (07:42→18:08)
[2017-08-23 07:49] LABS: BAND NEUTROPHILS % (MANUAL) 7 %; LYMPHOCYTES % (MANUAL) 2 % (19-48); MONOCYTES % (MANUAL) 8 % (3.4-9.0); NEUTROPHILS % (MANUAL) 83 % (40-74)
[2017-08-23 07:50] LABS: PLATELET ESTIMATE MODERATELY DECREASED; PLATELET MORPHOLOGY COMMENT NORMAL; RBC MORPHOLOGY COMMENT NORMAL
[2017-08-23] MEDS: LORAZEPAM INJ 2 MG/ML VIAL IV PRN ×2 (11:02→23:16)
[2017-08-23] MEDS ORDERED: HEPARIN SOD (PORCINE) 1000 UNIT/ML SDV IV PRN (11:15)
[2017-08-23] MEDS: MICAFUNGIN SODIUM 100 ML IV SCH (14:07)
[2017-08-23] MEDS: FUROSEMIDE INJ 10 MG/ML 4 ML VIAL IV SCH ×2 (14:17→21:00)
[2017-08-23 14:45] LABS: FREE T4 (FREE THYROXINE) 0.75 ng/dL (0.9-1.8); THYROID STIMULATING HORMONE 0.323 uIU/mL (0.350-4.940)
--- NOTE | 2017-08-23 15:46 | Consultation ---
DATE OF CONSULTATION: August 23, 2017 ENDOCRINE CONSULTATION This is a patient of Dr. Layne. Thank you very much for referring this patient. This is a 72-year-old white female who is referred to me for evaluation of acute hyperglycemia and uncontrolled diabetes mellitus. Patient is status post retroperitoneal removal of the metastasis from the colon cancer. Postop the patient had a very eventful course in the form of acute respiratory failure, hypotension and sepsis. Patient also has a longstanding history of hypertension, chronic renal failure. She is presently on dialysis. Patient has been started on TPN D50, and the blood sugars are extremely elevated. PHYSICAL EXAMINATION: GENERAL: Today the patient is arousable. She is morbidly obese. VITAL SIGNS: Her heart rate is around 99. Blood pressure is 87/51. CHEST: Bilateral vesicular breathing. She also has bilateral bronchospasm and basal rales. CARDIAC: Both 1st and 2nd heart sounds. There is no 3rd or 4th heart sound. Ejection sound grade 2/6. LAB: Her blood sugars have been in 720 range, and her BUN and creatinine are significantly elevated as 87 and 3.04. Her hemoglobin is 8.7 with hematocrit of 28.0. CLINICAL IMPRESSION: 1. Colon cancer, retroperitoneal metastasis, status post surgery, abdominal wall infection. 2. Diabetes mellitus type 2 with complications. 3. End-stage renal failure on chronic hemodialysis. 4. Sepsis. 5. History of hypertension. The plan at this time is to do a hemoglobin A1c, thyroid function test. Monitor her blood sugars and increase the insulin with TPN and also increase the NPH. If we cannot control her diabetes because of the TPN problems, we may have to put her on the insulin drip as well. Thanks again for referring this patient. I will be following this patient with you. Job#: [id number] EV
[2017-08-23] MEDS: CENTRAL TPN FORMULA 1 BAG IV SCH (20:01)
[2017-08-23] MEDS: INSULIN DETEMIR 100 UNIT/ML PEN SQ SCH (20:01)
[2017-08-23] MEDS: ONDANSETRON HCL INJ 2 MG/ML VIAL IV PRN (20:44)
[2017-08-24] VITALS (65 sets, daily range): BP systolic 82–130; BP diastolic 33–70
[2017-08-24] MEDS: FUROSEMIDE INJ 10 MG/ML 4 ML VIAL IV SCH ×3 (05:31→21:00)
[2017-08-24] MEDS: INSULIN LISPRO 100 UNIT/1 ML 3ML VIAL SQ SCH ×4 (06:01→23:04)
[2017-08-24 06:22] LABS: BASOPHILS # (AUTO) 0.1 (0.0-0.1); BASOPHILS % 0.3 % (0.0-1.0); EOSINOPHILS # (AUTO) 0.1 (0.0-0.4); EOSINOPHILS % 0.4 % (0.0-6.0); HEMATOCRIT 24.9 % (34.2-44.1); LYMPHOCYTES # (AUTO) 0.9 (1.0-3.2); LYMPHOCYTES % 5.6 % (18.0-39.1); MEAN CORPUSCULAR HEMOGLOBIN 29.4 pg (28-32); MEAN CORPUSCULAR HGB CONC 31.7 g/dL (31-35); MEAN CORPUSCULAR VOLUME 92.6 fL (81-99); MONOCYTES # (AUTO) 1.1 (0.2-0.8); MONOCYTES % 6.4 % (4.4-11.3); NEUTROPHILS # (AUTO) 14.1 (2.1-6.9); NEUTROPHILS % 83.6 % (38.7-80.0); PLATELET COUNT 70 x10e3/uL (140-360); RED BLOOD COUNT 2.69 x10e6/uL (3.6-5.1); RED CELL DISTRIBUTION WIDTH 21.8 % (11.7-14.4)
[2017-08-24 06:26] LABS: HEMOGLOBIN 7.9 g/dL (12.0-16.0)
[2017-08-24 06:55] LABS: ALBUMIN/GLOBULIN RATIO 0.8 (0.8-2.0); ANION GAP 16.6 mmol/L (8-16); CALCIUM 8.3 mg/dL (8.4-10.2); CREATININE, SERUM 2.88 mg/dL (0.57-1.11); POTASSIUM 4.6 mmol/L (3.5-5.1)
[2017-08-24 08:10] LABS: BAND NEUTROPHILS % (MANUAL) 7 %; LYMPHOCYTES % (MANUAL) 4 % (19-48); MONOCYTES % (MANUAL) 5 % (3.4-9.0); NEUTROPHILS % (MANUAL) 84 % (40-74)
[2017-08-24 08:11] LABS: ANISOCYTOSIS SLIGHT
[2017-08-24 08:12] LABS: HYPOCHROMASIA MODERATE; PLATELET ESTIMATE MODERATELY DECREASED; PLATELET MORPHOLOGY COMMENT FEW GIANT; POIKILOCYTOSIS SLIGHT; POLYCHROMASIA FEW; RBC MORPHOLOGY COMMENT ABNORMAL
[2017-08-24] MEDS ORDERED: VANCOMYCIN 1GM/NS 250 ML 250 ML IV SCH (08:15)
[2017-08-24] MEDS: MEROPENEM 500 MG VIAL IV SCH (09:00)
[2017-08-24] MEDS ORDERED: MEROPENEM 500MG 500 MG in SODIUM CHLORIDE 0.9% 50ML 50 ML IV SCH (09:00)
[2017-08-24] MEDS: PANTOPRAZOLE 40 MG 10ML VIAL IV SCH (09:00)
[2017-08-24] MEDS ORDERED: MEROPENEM 500 MG VIAL IV SCH (09:00)
[2017-08-24] MEDS: BALSAM PERU/CASTOR OIL 60 GM OINT...G. TP SCH ×2 (10:14→18:50)
[2017-08-24] MEDS: LORAZEPAM INJ 2 MG/ML VIAL IV PRN (10:26)
[2017-08-24] MEDS: METRONIDAZOLE 500MG/NS 100ML 100 ML IV SCH ×2 (14:00→21:00)
[2017-08-24] MEDS: MICAFUNGIN SODIUM 100 ML IV SCH (14:00)
[2017-08-24] MEDS: CENTRAL TPN FORMULA 1 BAG IV SCH (19:17)
[2017-08-24] MEDS: INSULIN DETEMIR 100 UNIT/ML PEN SQ SCH (20:00)
[2017-08-25] VITALS (105 sets, daily range): BP systolic 48–160; BP diastolic 23–106
[2017-08-25] MEDS: HYDROMORPHONE 1MG/1ML INJ IV PRN (00:38)
[2017-08-25] MEDS: METRONIDAZOLE 500MG/NS 100ML 100 ML IV SCH ×3 (05:02→22:32)
[2017-08-25] MEDS: FUROSEMIDE INJ 10 MG/ML 4 ML VIAL IV SCH ×3 (05:02→22:00)
[2017-08-25] MEDS: INSULIN LISPRO 100 UNIT/1 ML 3ML VIAL SQ SCH ×3 (05:03→18:00)
[2017-08-25 06:08] LABS: BASOPHILS # (AUTO) 0.1 (0.0-0.1); BASOPHILS % 0.3 % (0.0-1.0); EOSINOPHILS # (AUTO) 0.1 (0.0-0.4); EOSINOPHILS % 0.2 % (0.0-6.0); HEMATOCRIT 25.4 % (34.2-44.1); HEMOGLOBIN 8.2 g/dL (12.0-16.0); LYMPHOCYTES # (AUTO) 0.9 (1.0-3.2); LYMPHOCYTES % 4.5 % (18.0-39.1); MEAN CORPUSCULAR HEMOGLOBIN 29.7 pg (28-32); MEAN CORPUSCULAR HGB CONC 32.3 g/dL (31-35); MONOCYTES # (AUTO) 1.4 (0.2-0.8); MONOCYTES % 6.6 % (4.4-11.3); NEUTROPHILS # (AUTO) 17.6 (2.1-6.9); NEUTROPHILS % 85.4 % (38.7-80.0); PLATELET COUNT 86 x10e3/uL (140-360); RED BLOOD COUNT 2.76 x10e6/uL (3.6-5.1); RED CELL DISTRIBUTION WIDTH 22.4 % (11.7-14.4)
[2017-08-25 06:39] LABS: ALBUMIN 1.9 g/dL (3.5-5.0); ALBUMIN/GLOBULIN RATIO 0.6 (0.8-2.0); ANION GAP 15.6 mmol/L (8-16); CALCIUM 8.5 mg/dL (8.4-10.2); CREATININE, SERUM 2.63 mg/dL (0.57-1.11); MAGNESIUM 2.8 MG/DL (1.3-2.1); PHOSPHORUS 8.2 MG/DL (2.3-4.7); POTASSIUM 4.6 mmol/L (3.5-5.1)
[2017-08-25 08:38] LABS: BAND NEUTROPHILS % (MANUAL) 7 %; EOSINOPHILS % (MANUAL) 1 % (0-7); LYMPHOCYTES % (MANUAL) 4 % (19-48); MONOCYTES % (MANUAL) 5 % (3.4-9.0); MYELOCYTES % (MANUAL) 1 % (0-0); NEUTROPHILS % (MANUAL) 81 % (40-74); PLATELET MORPHOLOGY COMMENT FEW LARGE; PROMYELOCYTES % (MANUAL) 1 % (0-0)
[2017-08-25 08:39] LABS: ANISOCYTOSIS SLIGHT; ELLIPTOCYTE, RBC SLIGHT; HYPOCHROMASIA MODERATE; PLATELET ESTIMATE MODERATELY DECREASED; RBC MORPHOLOGY COMMENT NORMAL
[2017-08-25] MEDS ORDERED: VANCOMYCIN 1GM/NS 250 ML 250 ML IV SCH (09:00)
[2017-08-25] MEDS: BALSAM PERU/CASTOR OIL 60 GM OINT...G. TP SCH ×2 (09:45→17:04)
[2017-08-25] MEDS: MEROPENEM 500 MG VIAL IV SCH (09:45)
[2017-08-25] MEDS: PANTOPRAZOLE 40 MG 10ML VIAL IV SCH (09:45)
[2017-08-25] MEDS ORDERED: MIDAZOLAM HCL 25 MG in SODIUM CHLORIDE 0.9% 50ML 45 ML IV PRN (14:30)
[2017-08-25] MEDS ORDERED: SODIUM CHLORIDE 0.9% 1000ML 1,000 ML IV STA (14:36)
[2017-08-25] MEDS ORDERED: AMIODARONE HCL 150MG 100 ML IV ONE (14:45)
[2017-08-25] MEDS ORDERED: AMIODARONE 900MG 500 ML IV SCH (14:45)
[2017-08-25] MEDS ORDERED: DEXMEDETOMIDINE HCL 200 MCG in SODIUM CHLORIDE 0.9% 50ML 48 ML IV PRN ×4 (14:45)
[2017-08-25] MEDS: NOREPINEPHRINE 8 MG/D5W 250 ML 250 ML IV PRN (14:55)
[2017-08-25] MEDS ORDERED: ROCURONIUM BROMIDE 10 MG/ML 5ML VIAL IV ONE (15:00)
[2017-08-25] MEDS ORDERED: LIDOCAINE HCL 1% LOCAL INJ 20 ML VIAL ONE (15:06)
[2017-08-25 15:08] LABS: BASOPHILS % 0.1 % (0.0-1.0); EOSINOPHILS # (AUTO) 0.1 (0.0-0.4); EOSINOPHILS % 0.3 % (0.0-6.0); HEMATOCRIT 27.9 % (34.2-44.1); HEMOGLOBIN 8.8 g/dL (12.0-16.0); LYMPHOCYTES # (AUTO) 2.4 (1.0-3.2); LYMPHOCYTES % 5.6 % (18.0-39.1); MEAN CORPUSCULAR HEMOGLOBIN 30.1 pg (28-32); MEAN CORPUSCULAR HGB CONC 31.5 g/dL (31-35); MEAN CORPUSCULAR VOLUME 95.5 fL (81-99); MONOCYTES # (AUTO) 1.9 (0.2-0.8); MONOCYTES % 4.6 % (4.4-11.3); NEUTROPHILS # (AUTO) 34.7 (2.1-6.9); PLATELET COUNT 61 x10e3/uL (140-360); RED BLOOD COUNT 2.92 x10e6/uL (3.6-5.1); RED CELL DISTRIBUTION WIDTH 22.4 % (11.7-14.4)
[2017-08-25] MEDS ORDERED: DEXTROSE 10% 1,000 ML IV SCH (15:15)
[2017-08-25] MEDS: MICAFUNGIN SODIUM 100 ML IV SCH (15:28)
[2017-08-25] MEDS ORDERED: DIATRIZOATE MEGL/DIATRIZOA SOD 30 ML BTL PO ONE (15:29)
[2017-08-25 15:32] LABS: ALBUMIN 1.9 g/dL (3.5-5.0); ALBUMIN/GLOBULIN RATIO 0.7 (0.8-2.0); CALCIUM 9.5 mg/dL (8.4-10.2); CREATININE, SERUM 1.85 mg/dL (0.57-1.11); MAGNESIUM 2.3 MG/DL (1.3-2.1); PHOSPHORUS 7.8 MG/DL (2.3-4.7)
[2017-08-25] MEDS ORDERED: HYDROMORPHONE 20MG/ NS 100ML IV PRN (15:45)
--- NOTE | 2017-08-25 15:49 | Diagnostic Imaging Report ---
PROCEDURE: A single AP view of the chest. COMPARISON: [facility], DX, CHEST XRAY LINE PLACEMENT, 08/20/2017, 13:43. INDICATIONS: INTUBATION FINDINGS:Exam limited as only the lower portion of the chest is included in the image and by soft tissue attenuation. See impression. IMPRESSION: 1. enteric tube is noted in the left hemidiaphragm, with tip projecting in the region of the proximal fundus and proximal side-port likely to the level of the GE junction. Further advancement is recommended. No other tubes are identified. 2. Left retrocardiac density may represent atelectasis, pneumonia, and/or pleural effusion. Jos Rivera M.D. Dictated by: Jos Rivera M.D. on 08/25/2017 at 15:49 Electronically approved by: Jos Rivera M.D. on 08/25/2017 at 15:49
[2017-08-25] MEDS ORDERED: HYDROMORPHONE 100 ML IV PRN ×2 (16:00)
[2017-08-25] MEDS ORDERED: VASOPRESSIN 100 UNIT in DEXTROSE 5% 100ML 100 ML IV PRN (16:45)
[2017-08-25 17:10] LABS: ABG HCO3 21 mmol/L (23-28); ABG PCO2 48 mmHg (41-51); ABG PH 7.26 (7.31-7.41); ABG PO2 57 mmHg (80-105)
[2017-08-25 17:13] LABS: ABG HCO3 21 mmol/L (23-28); ABG PCO2 49 mmHg (41-51); ABG PH 7.24 (7.31-7.41); ABG PO2 73 mmHg (80-105)
[2017-08-25] MEDS ORDERED: ETOMIDATE 2 MG/ML 10 ML INJ IV ONE (17:45)
[2017-08-25] MEDS ORDERED: PHENYLEPHRINE HCL 1% 10 MG/ML VIAL ONE (17:45)
[2017-08-25] MEDS ORDERED: ROCURONIUM BROMIDE 10 MG/ML 5ML VIAL ONE (17:45)
[2017-08-25] MEDS ORDERED: SODIUM BICARBONATE 8.4% INJ 50 ML SYR ONE ×2 (17:50→18:54)
[2017-08-25] MEDS ORDERED: EPINEPHRINE HCL SYRINGE ONE ×2 (17:50→18:54)
[2017-08-25] MEDS ORDERED: AMIODARONE HCL INJ 150MG/3ML ONE (18:54)
[2017-08-25] MEDS ORDERED: CALCIUM CHLORIDE 10% 1.36 MEQ/ML 10ML SYR IV ONE (18:54)
[2017-08-25] MEDS ORDERED: SODIUM CHLORIDE 0.9% 1000 ML BAG ONE (18:54)
[2017-08-25] MEDS ORDERED: SODIUM CHLORIDE FLUSH 10 ML SYR ONE (18:54)
[2017-08-25] MEDS ORDERED: ETOMIDATE 40 MG/ 20ML VIAL IV ONE (18:59)
[2017-08-25 19:58] LABS: ABG HCO3 21 mmol/L (23-28); ABG PCO2 43 mmHg (41-51); ABG PO2 81 mmHg (80-105)
[2017-08-25] MEDS: INSULIN DETEMIR 100 UNIT/ML PEN SQ SCH (22:40)
--- NOTE | 2017-08-25 22:52 | Diagnostic Imaging Report ---
EXAM: CT Chest, Abdomen and Pelvis WITHOUT contrast INDICATION: Suspected pulmonary embolism and abdominal pain. COMPARISON: 08/21/2017 TECHNIQUE: Chest, abdomen and pelvis were scanned utilizing a multidetector helical scanner from the lung apex to the pubic symphysis without administration of IV contrast. Absence of intravenous contrast decreases sensitivity for detection of focal lesions and vascular pathology. Coronal and sagittal reformations were obtained. Routine protocol was performed. IV CONTRAST: None. ORAL CONTRAST: None RADIATION DOSE: Total DLP: 2207 mGy*cm Estimated effective dose: (DLP x 0.015 x size factor) mSv COMPLICATIONS: None FINDINGS: LINES and TUBES: Endotracheal tube is in good position 4 cm above the kai. NG tube is in good position LUNGS AND AIRWAYS: Complete collapse of the left lung. Right lung base atelectasis and airspace opacity compatible with pneumonia/aspiration. Left mainstem bronchus appears completely filled with fluid PLEURA: Small right pleural effusion. HEART AND MEDIASTINUM: Multinodular and large thyroid with multiple axial and coarse calcifications compatible with goiter No mediastinal, hilar or axillary lymphadenopathy. The heart is normal in size.. There is no pericardial effusion. There are mild atherosclerotic calcifications in the aorta and coronary arteries. HEPATOBILIARY: No focal hepatic lesions. No biliary ductal dilation. GALLBLADDER: There are cholecystectomy clips. SPLEEN: Splenomegaly PANCREAS: No focal masses or ductal dilatation. ADRENALS: No adrenal nodules KIDNEYS/URETERS: No hydronephrosis. No cystic or solid mass lesions. No stones. GI TRACT: There are postsurgical changes noted in the peripancreatic region at the level of the transverse colon No abnormal distention, wall thickening, or evidence of bowel obstruction. Appendix is normal. PELVIC ORGANS/BLADDER: Unremarkable. LYMPH NODES: No lymphadenopathy. VESSELS: Unremarkable. PERITONEUM / RETROPERITONEUM: Moderate amount of fluid predominantly involving the right hemiabdomen, perihepatic and paracolic gutter spaces in these post surgical abdomen BONES: There are mild degenerative changes in the thoracolumbar spine. SOFT TISSUES: There is diffuse anarsarca. IMPRESSION: 1. Complete collapse of the left lung secondary to left mainstem bronchus debris/aspiration. 2. Bilateral pleural effusions and atelectasis. 3. Right lower lobe aspiration versus pneumonia. 4. Postsurgical abdomen with moderate amount of fluid which appears simple in density with areas of complexity in the lower right paracolic gutter. Small hemoperitoneum cannot be excluded. Signed by: Dr. Hamilton Palacios M.D. on 08/25/2017 10:48 PM
[2017-08-26] VITALS (33 sets, daily range): BP systolic 54–135; BP diastolic 21–118
[2017-08-26] MEDS ORDERED: DEXTROSE 5% IV SCH ×2 (00:42→01:24)
[2017-08-26] MEDS ORDERED: PHENYLEPHRINE IV SCH ×2 (00:42→01:24)
[2017-08-26] MEDS ORDERED: PHENYLEPHRINE HCL 1% 10 MG/ML VIAL ONE ×2 (00:53→01:32)
[2017-08-26] MEDS ORDERED: DEXTROSE 5% 250ML 250 ML IV ONE (00:54)
[2017-08-26] MEDS: NOREPINEPHRINE 8 MG/D5W 250 ML 250 ML IV PRN (01:34)
[2017-08-26] MEDS ORDERED: PHENYLEPHRINE 10MG/ML VIAL 40 MG in DEXTROSE 5% 250ML 246 ML IV PRN (02:30)
[2017-08-26] MEDS ORDERED: SODIUM CHLORIDE 0.9% 1000ML 1,000 ML ONE (03:02)
[2017-08-26] MEDS ORDERED: EPINEPHRINE HCL SYRINGE ONE (03:06)
[2017-08-26 03:07] LABS: BASOPHILS # (AUTO) 0.3 (0.0-0.1); BASOPHILS % 0.6 % (0.0-1.0); EOSINOPHILS # (AUTO) 0.2 (0.0-0.4); EOSINOPHILS % 0.4 % (0.0-6.0); HEMATOCRIT 33.3 % (34.2-44.1); LYMPHOCYTES # (AUTO) 3.2 (1.0-3.2); LYMPHOCYTES % 6.5 % (18.0-39.1); MEAN CORPUSCULAR HEMOGLOBIN 29.9 pg (28-32); MEAN CORPUSCULAR VOLUME 99.7 fL (81-99); MONOCYTES # (AUTO) 3.3 (0.2-0.8); MONOCYTES % 6.8 % (4.4-11.3); NEUTROPHILS # (AUTO) 33.8 (2.1-6.9); NEUTROPHILS % 69.1 % (38.7-80.0); PLATELET COUNT 81 x10e3/uL (140-360); RED BLOOD COUNT 3.34 x10e6/uL (3.6-5.1); RED CELL DISTRIBUTION WIDTH 21.2 % (11.7-14.4)
[2017-08-26 03:21] LABS: INR 2.85; PROTHROMBIN TIME 28.1 seconds (11.9-14.5)
[2017-08-26 03:23] LABS: PARTIAL THROMBOPLASTIN TIME 63.4 seconds (23.8-35.5)
[2017-08-26] MEDS ORDERED: SODIUM BICARBONATE 8.4% INJ 50 ML SYR IV STA (03:43)
[2017-08-26] MEDS ORDERED: SODIUM BICARBONATE 8.4% SYRING 100 ML ONE ×2 (03:48→04:36)
--- NOTE | 2017-08-26 04:08 | Diagnostic Imaging Report ---
EXAMINATION: CHEST SINGLE (PORTABLE) INDICATION: Intubated COMPARISON: CT of the chest on 08/25/2017 and chest x-ray on 08/25/2017 FINDINGS: TUBES and LINES: Endotracheal, NG tube, left subclavian central line catheter and right chest port are present in good position. LUNGS: The left lung continue to be completely atelectatic/collapsed the right lung is clear . PLEURA: The left pleural space is limited. No right pleural effusion or right pneumothorax HEART AND MEDIASTINUM: The cardiac silhouette is within the left hemithorax limiting the evaluation BONES AND SOFT TISSUES: No acute osseous lesion. Soft tissues are unremarkable. UPPER ABDOMEN: No free air under the diaphragm. IMPRESSION: 1. Complete collapse of the left lung with retraction of the mediastinum to the left of midline. 2. Right lung is clear Signed by: Dr. Hamilton Palacios M.D. on 08/26/2017 4:05 AM
[2017-08-26 04:09] LABS: BAND NEUTROPHILS % (MANUAL) 7 %; LYMPHOCYTES % (MANUAL) 14 % (19-48); METAMYELOCYTES % (MANUAL) 2 % (0-0); MONOCYTES % (MANUAL) 3 % (3.4-9.0); MYELOCYTES % (MANUAL) 6 % (0-0); NEUTROPHILS % (MANUAL) 67 % (40-74); NUCLEATED RED BLOOD CELLS 27
[2017-08-26 04:11] LABS: ANISOCYTOSIS MODERATE
[2017-08-26 04:12] LABS: POLYCHROMASIA FEW; RBC MORPHOLOGY COMMENT ABNORMAL
[2017-08-26 04:13] LABS: OVALOCYTES FEW; POIKILOCYTOSIS SLIGHT
[2017-08-26 04:14] LABS: BURR CELLS SLIGHT
[2017-08-26 04:15] LABS: TEAR DROP CELLS FEW
[2017-08-26] MEDS ORDERED: SODIUM CHLORIDE 0.9% 1000ML 1,000 ML IV SCH (04:15)
[2017-08-26 04:17] LABS: ALBUMIN 1.2 g/dL (3.5-5.0); ALBUMIN/GLOBULIN RATIO 0.6 (0.8-2.0); CALCIUM 7.5 mg/dL (8.4-10.2); CREATININE, SERUM 2.73 mg/dL (0.57-1.11); MAGNESIUM 2.4 MG/DL (1.3-2.1)
[2017-08-26 04:23] LABS: LARGE PLATELETS FEW; PLATELET ESTIMATE MODERATELY DECREASED
[2017-08-26 04:23] LABS: CREATINE KINASE MB 4.3 ng/mL (0-5.0)
[2017-08-26] MEDS ORDERED: SODIUM BICARBONATE 8.4% SYRING 100 ML in SODIUM CHLORIDE 0.45% 1,000 ML IV ONE (04:30)
[2017-08-26 04:31] LABS: ABG HCO3 7 mmol/L (23-28); ABG PCO2 39 mmHg (41-51); ABG PH 6.87 (7.31-7.41); ABG PO2 108 mmHg (80-105)
[2017-08-26] MEDS ORDERED: SODIUM CHLORIDE 0.45% 1,000 ML ONE (04:42)
[2017-08-26] MEDS: FUROSEMIDE INJ 10 MG/ML 4 ML VIAL IV SCH (05:06)
[2017-08-26] MEDS: METRONIDAZOLE 500MG/NS 100ML 100 ML IV SCH (05:37)
[2017-08-26] MEDS: INSULIN LISPRO 100 UNIT/1 ML 3ML VIAL SQ SCH ×2 (05:41)
[2017-08-26] MEDS ORDERED: LORAZEPAM INJ 2 MG/ML VIAL IV PRN (06:00)
[2017-08-26] MEDS ORDERED: MORPHINE SULFATE 4 MG/ML SYR IV PRN (06:00)
[2017-08-26] MEDS ORDERED: FENTANYL CITRATE/PF 100MCG/2 ML INJ ONE (18:07)
--- NOTE | 2017-08-26 22:58 | Operative Report ---
DATE OF PROCEDURE: August 25, 2017 PREOPERATIVE DIAGNOSIS: Acute abdomen. POSTOPERATIVE DIAGNOSES 1. Acute abdomen. 2. Necrotic perforated transverse colon. OPERATIVE PROCEDURES 1. Exploratory laparotomy. 2. Resection of necrotic transverse colon. 3. Ileostomy. BUTTONHOLE MAKER HAND: None. ANESTHESIA: General endotracheal, Dr. Farmer. INDICATION FOR SURGERY: The patient is a DICTATION DISCONTINUED (01:28) Job#: [id number] CQ MTDD
--- NOTE | 2017-08-26 23:55 | Operative Report ---
DATE OF PROCEDURE: August 25, 2017 PREOPERATIVE DIAGNOSIS: Acute abdomen. POSTOPERATIVE DIAGNOSIS: Acute abdomen from necrotic perforated colon. OPERATIVE PROCEDURES 1. Exploratory laparotomy. 2. Resection of transverse colon. 3. End ileostomy. ANESTHESIA: General endotracheal, Dr. Farmer. INDICATION FOR SURGERY: This patient is a 72-year-old female, who is status post resection of retroperitoneal tumor with massive blood loss and multiorgan failure. The patient was slowly recovering after extubation with resumption of bowel activity except for some drainage from the incision, though to be leakage of murky ascitic fluid. The patient sustained a cardiorespiratory arrest after hemodialysis today and was resuscitated and intubated. She was awake and responsive, on vasopressor. The abdomen was noted to be tender with rebound, guarding in the lower abdomen. A CT of the abdomen showed some air in the abdominal wall; otherwise, no intra-abdominal abscess. The patient's family has consented for exploratory laparotomy with all indicated procedures. Attendant risks of bleeding, infection, even discussed with family. PROCEDURE FINDINGS: Perforation from necrotic transverse colon distal to the ileal- colonic anastomosis. Localized collection of colonic content around the perforation partially covered by the omentum. DESCRIPTION OF PROCEDURE: The patient brought to the OR from ICU intubated. She was then put under general anesthesia. The anesthesia team maintained blood pressure with vasopressor and fluid. She also received blood products. The midline incision is reopened. After removing the staple, large amount of greenish, somewhat thick fluid was encountered and evacuated from the subcutaneous layer. The fascia was reopened by dividing the fascial stitches. Upon entering the peritoneal cavity, there was found a collection of greenish bowel content coming out of perforation in the colon just distal to the previous ileal-colostomy anastomosis. The transverse colon in that area of perforation was necrotic. The perforation was partially walled off by the omentum, which was then dissected off the colon and we proceeded to use a KEVIN stapler to resect the anastomosis dividing the transverse colon approximately 10 cm distal to the perforated site and the ileum approximately 10 cm proximal. Segment of colon was then removed from the operative field, which was then irrigated with copious saline solution. There is no abscess in other quadrants, only serosanguineous ascitic fluid. The ileum was then prepared for an ileostomy in right upper quadrant. A [place] of skin and subcutaneous fatty tissue were removed and the fascia overlying the upper rectus muscle was opened in a cruciate incision through the fascia and the posterior fascia and peritoneum was spread open allowing 2 fingers to pass. The terminal ileum was then exteriorized through the ostomy site with enough redundancy for maturation of the ileostomy. The operative field was then irrigated with copious amount saline solution. Approximately 5 L were used. The viable piece of omentum was then again placed on the anterior aspect of the bowel and we closed the abdomen after placing a 19-Somali Maurice drain in the mid of abdomen and taken out through a separate stab wound incision in the right lower quadrant. The abdominal wall was closed with retention suture. Using #1 Ethibond suture taking full thickness of the abdominal wall. Pieces of Telfa were placed between the retention stitches to serve as angel for prevention of subcutaneous fluid collection. The patient then transported in a critical condition to ICU. ESTIMATED BLOOD LOSS: 100 mL. Job#: [id number] CQ [id number]
--- NOTE | 2017-08-27 07:22 | Diagnostic Imaging Report ---
Non-tunneled Dialysis Catheter Placement August 25, 2017 Pre-Procedure Diagnosis: End-Stage Renal Disease Post-procedure Diagnosis:End-Stage Renal Disease [employer] Attendant: Shell Cohn Director Counseling Bureau: None Sedation: None. Heart rate and oxygen saturation were monitored in real-time. Blood pressure was measured in 5 minute increments. 1% lidocaine was used for local anesthesia. Estimate blood loss: <5 mL Blood administered: None Complications: None Implants/Grafts: 11 Urdu 20 cm 2 lumen temporary dialysis catheter Specimen: None Procedure: Informed consent was obtained and the patient positioned supine in the ICU. A timeout was performed, followed by preliminary ultrasound of the right common femoral vein (see findings below). The right groin was prepped and draped in standard fashion. Using real-time ultrasound guidance a 18 gauge vascular needle was used to access the right common femoral vein. An image was stored in the electronic medical record. A wire was advanced and the needle exchanged for a non-tunneled dialysis catheter using standard Salinger technique. At the end of the procedure the catheter was flushed, secured to the skin and a sterile dressing applied. The patient tolerated the procedure well and without immediate complication. Findings: Patent right common femoral vein as demonstrated by normal ultrasound compressibility. Impression: Successful placement of a non-tunneled right common femoral vein dialysis catheter using ultrasound guidance. This report was generated with voice-recognition technology. Errors in paving and surfacing labourer can occur. Please interpret accordingly and contact a radiologist if there are any questions regarding the report. Signed by: Dr. Baljeet Cohn M.D. on 08/27/2017 7:18 AM
--- NOTE | 2017-08-30 13:50 | Diagnostic Imaging Report ---
PROCEDURE:ULTRASOUND GUIDANCE FOR VASCULAR ACCESS COMPARISON:None. INDICATIONS:Not provided. FINDINGS:See below. CONCLUSION:Please see the dictation of the catheter placement for full clinical details. Dictated by: Ferdinand Willis M.D. on 08/30/2017 at 13:51 Electronically approved by: Ferdinand Willis M.D. on 08/30/2017 at 13:51
--- NOTE | 2017-08-30 13:50 | Diagnostic Imaging Report ---
PROCEDURE:ULTRASOUND GUIDANCE FOR VASCULAR ACCESS COMPARISON:None. INDICATIONS:HD Cath Exchange and New Line Placement FINDINGS:See below. CONCLUSION:Please see the dictation of the catheter placement for full clinical details. Dictated by: Ferdinand Willis M.D. on 08/30/2017 at 13:51 Electronically approved by: Ferdinand Willis M.D. on 08/30/2017 at 13:51
--- NOTE | 2017-08-30 13:51 | Diagnostic Imaging Report ---
PROCEDURE:NON-TUNNELLED CVC CATH REPLACE COMPARISON:None. INDICATIONS: Central venous access. PROCEDURE: See below. CONCLUSION: Please see the dictation of the catheter placement for full clinical details. Dictated by: Ferdinand Willis M.D. on 08/30/2017 at 13:52 Electronically approved by: Ferdinand Willis M.D. on 08/30/2017 at 13:52
--- NOTE | 2017-08-30 15:49 | Diagnostic Imaging Report ---
PROCEDURE:NON-TUNNELLED CVC CATH PLACMNT COMPARISON:None. INDICATIONS: Need for dialysis. Need for extra central venous access. COMPLICATIONS: None. MEDICATIONS: None. BLOOD LOSS: 5 cc. PROCEDURE: 1. Exchange of a left internal jugular temporary central venous hemodialysis catheter for a different central venous hemodialysis catheter. 2. Exchange of a left internal jugular temporary central venous hemodialysis catheter for a temporary triple lumen central venous catheter. 3. Placement of a right internal jugular temporary central venous hemodialysis catheter. The procedure was performed at the bedside in the intensive care unit. The left internal jugular temporary central venous hemodialysis catheter was addressed first. The catheter lumens were not functioning properly with aspiration of sterile saline. The existing catheter was prepped and draped in the usual sterile fashion. A 0.035 inch wire was placed centrally. The existing catheter was removed. A new temporary central venous hemodialysis catheter was advanced over the wire. The wire was removed. The catheter again failed testing. The catheter would not function with aspiration and flush of sterile saline. The decision was made to convert the hemodialysis catheter access to a triple lumen central venous catheter for venous access. A 0.035 inch wire was advanced centrally. The catheter was removed. A temporary triple lumen central venous catheter was advanced over the wire. The wire was removed. All 3 ports demonstrated proper function with aspiration and flush of sterile saline. The catheter was secured to the skin with 3-0 Ethilon suture. A sterile dressing was applied. The right neck was then addressed for the dialysis catheter access. The right neck was prepped and draped in the usual sterile fashion. 1% lidocaine was infused into the subcutaneous tissues for local anesthesia. Utilizing direct sonographic guidance, a 21 gauge needle was advanced into the right internal jugular vein. A 0.018 inch wire was advanced centrally. An access sheath was placed over the wire to secure the vascular access. The wire was upsized to a 0.035 inch wire. Dilations were performed over the wire. A double lumen temporary central venous line ounces catheter was advanced over the wire. Was. The ports demonstrated proper function with aspiration and flush of sterile saline. The ports were flushed with sterile saline. The catheter was secured to the skin with 3-0 Ethilon suture. A sterile dressing was applied. There were no immediate competitions. The patient tolerated the procedure well. The patient remained in the intensive care unit in stable but unchanged condition. CONCLUSION: 1. Successful exchange of a left internal jugular temporary central venous hemodialysis catheter utilizing ultrasound guidance. 2. Successful exchange of a left internal jugular temporary central venous hemodialysis catheter for a temporary triple lumen central venous catheter utilizing ultrasound guidance. 3. Successful placement of a right internal jugular temporary central venous hemodialysis catheter utilizing ultrasound guidance. Dictated by: Ferdinand Willis M.D. on 08/30/2017 at 15:50 Electronically approved by: Ferdinand Willis M.D. on 08/30/2017 at 15:50
--- NOTE | 2017-09-28 15:30 | Discharge Summary ---
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 HISTORY OF PRESENT ILLNESS: The patient is a 72-year-old female with a history of carcinoma of the colon with surgery in 2016 and developed recurrent mass in the mesentery of the colon. She was admitted for surgery. HOSPITAL COURSE: The patient was admitted to the hospital the same day as surgery and underwent resection of retroperitoneal tumor with repair of superior mesenteric vein and excision of omental mass with surgery complicated by a large amount of blood loss. Postoperatively the patient was monitored in the intensive care unit. She developed acute renal failure, required dialysis. She was maintained on a ventilator. She was hypotensive, required blood transfusion, had an elevated white blood cell count. She had a CT of the abdomen which was unremarkable. She continued to require pressor support and was monitored in the intensive care unit. She required dialysis on a regular basis. Otherwise, the white blood cell count came down, but she was never quite alert on the ventilator. She had alteration of the mental status but continued with supportive care. She was extubated on the 6th postop day. Nasogastric tube was also removed. She still had signs of sepsis, however. She had some drainage from her wound which appeared to be serous. Otherwise, her wound was intact. She remained hemodynamically stable and seemed to be improving, and she developed hypotension and suffered cardiopulmonary arrest. Evaluation revealed findings suggestive of a possible intra-abdominal problem. She was returned to surgery by Dr. Torres on August 25, 2017, where she was found to have necrosis of the transverse colon at site of previous resection. She underwent resection and an ileostomy at this time but did not really improve. The family changed her to a DNR status, and she on August 26, 2017. CORIE HERRING MD Job#: [id number] EDER
== END 2017-08-26 12:18 | disposition expired | DRG 329 ==
LOC: OR 10:32 → ICU 15:16
PROVIDERS: ADMIT Surgery; ATTEND Surgery
PROC: 5A1955Z Respiratory Ventilation, Greater than 96 Consecutive Hours (ICD-10-PCS; 2017-08-12)
PROC: 0DQV0ZZ Repair Mesentery, Open Approach (ICD-10-PCS; 2017-08-12)
PROC: 0BH18EZ Insertion of Endotracheal Airway into Trachea, Via Natural or Artificial Opening Endoscopic (ICD-10-PCS; 2017-08-12)
PROC: 3E043XZ Introduction of Vasopressor into Central Vein, Percutaneous Approach (ICD-10-PCS; 2017-08-12)
PROC: 30233R1 Transfusion of Nonautologous Platelets into Peripheral Vein, Percutaneous Approach (ICD-10-PCS; 2017-08-12)
PROC: 30233N1 Transfusion of Nonautologous Red Blood Cells into Peripheral Vein, Percutaneous Approach (ICD-10-PCS; 2017-08-12)
PROC: 0DBU0ZZ Excision of Omentum, Open Approach (ICD-10-PCS; 2017-08-12)
PROC: 0WBH0ZZ Excision of Retroperitoneum, Open Approach (ICD-10-PCS; principal; 2017-08-12 10:18)
PROC: 02HV33Z Insertion of Infusion Device into Superior Vena Cava, Percutaneous Approach (ICD-10-PCS; 2017-08-13)
PROC: 5A1D70Z Performance of Urinary Filtration, Intermittent, Less than 6 Hours Per Day (ICD-10-PCS; 2017-08-14)
PROC: 02PY33Z Removal of Infusion Device from Great Vessel, Percutaneous Approach (ICD-10-PCS; 2017-08-20)
PROC: 02HV33Z Insertion of Infusion Device into Superior Vena Cava, Percutaneous Approach (ICD-10-PCS; 2017-08-20)
PROC: 0DBL0ZZ Excision of Transverse Colon, Open Approach (ICD-10-PCS; 2017-08-25)
PROC: 0D1B0Z4 Bypass Ileum to Cutaneous, Open Approach (ICD-10-PCS; 2017-08-25)
PROC: 0DBB0ZZ Excision of Ileum, Open Approach (ICD-10-PCS; 2017-08-25)
PROC: 06HM33Z Insertion of Infusion Device into Right Femoral Vein, Percutaneous Approach (ICD-10-PCS; 2017-08-25)
PROC: 5A12012 Performance of Cardiac Output, Single, Manual (ICD-10-PCS; 2017-08-25)
PROC: 0BH18EZ Insertion of Endotracheal Airway into Trachea, Via Natural or Artificial Opening Endoscopic (ICD-10-PCS; 2017-08-25)
PROC: 5A1935Z Respiratory Ventilation, Less than 24 Consecutive Hours (ICD-10-PCS; 2017-08-25)
DX: C78.6 Secondary malignant neoplasm of retroperitoneum and peritoneum (principal); N17.0 Acute kidney failure with tubular necrosis; J96.90 Respiratory failure, unspecified, unspecified whether with hypoxia or hypercapnia; K63.1 Perforation of intestine (nontraumatic); A41.9 Sepsis, unspecified organism; G93.41 Metabolic encephalopathy; R65.21 Severe sepsis with septic shock; J18.9 Pneumonia, unspecified organism; K55.049 Acute infarction of large intestine, extent unspecified; Z68.43 Body mass index [BMI] 50.0-59.9, adult; R57.8 Other shock; Z85.038 Personal history of other malignant neoplasm of large intestine; Z66 Do not resuscitate; I46.9 Cardiac arrest, cause unspecified; Z51.5 Encounter for palliative care; I12.9 Hypertensive chronic kidney disease with stage 1 through stage 4 chronic kidney disease, or unspecified chronic kidney disease; N18.9 Chronic kidney disease, unspecified; E11.65 Type 2 diabetes mellitus with hyperglycemia; Z87.891 Personal history of nicotine dependence; E87.5 Hyperkalemia; E66.01 Morbid (severe) obesity due to excess calories; Z78.1 Physical restraint status; Z79.82 Long term (current) use of aspirin; L89.311 Pressure ulcer of right buttock, stage 1; L89.151 Pressure ulcer of sacral region, stage 1
CPT/HCPCS: 36415; 36556; 36580; 36600; 71045; 71046; 71250; 74176; 74470; 76705; 76770; 76937; 80048; 80053; 81001; 81015; 82140; 82150; 82550; 82553; 82805; 82948; 83036; 83605; 83690; 83735; 84100; 84439; 84443; 84484; 85007; 85014; 85018; 85025; 85027; 85610; 85730; 86022; 86706; 86850; 86900; 86920; 87040; 87070; 87071; 87086; 87205; 87340; 88305; 88307; 88312; 88331; 88342; 90962; 92950; 93005; 93306; 94002; 94003; 94660; 96366; 96372; 97139; C1751; J0171; J0610; J1100; J1170; J1644; J1940; J1956; J2001; J2060; J2150; J2185; J2248; J2250; J2370; J2405; J3370; J3475; J7030; J7040; J7050; J7799; P9016; P9017; P9034; P9047